=== PATIENT | female | born 1985 | race Caucasian/White ===

== ENCOUNTER 2021-07-25 23:10 | Inpatient (IN) | payer OTHER, SELFPAY ==
[2021-07-25] VITALS (29 sets, daily range): BP systolic 133–184; BP diastolic 88–111; PULSE 66–88; O2SAT 99
--- NOTE | ~2021-07-25 | US_ITS ---
EXAMINATION: US OB follow up w BPP DATE: 07/26/2021 08:59 INDICATION: Maternal gestational diabetes and induced hypertension. Assess growth and biophysical profile. TECHNIQUE: Real-time pelvic ultrasound was performed. The interpreting radiologist was not present fo r the study. COMPARISON: None. FINDINGS: There is a single living fetus in vertex presentation. The placenta is fundal. heart rate is 1 34 beats per minute (bpm). Normal amniotic fluid index of 18.4 cm (5th%-95%: 7.7-24.9 cm at 36 weeks estimated gestational age). The following biometric data were obtained: BPD: 8.9 cm -> 36 weeks 1 days Head circumference: 32.9 cm -> 37 weeks 3 days Abdominal circumference: 33.6 cm -> 37 weeks 3 days Femur length: 7.9 cm -> 40 weeks 1 days Both the femur length to biparietal diameter and length to head circumference diameter are grea ter than 2 standard deviations above the mean. Head circumference to abdominal circumference ratio: 0.98 (normal range 0.90-1.05). Estimated weight: 3351 g (+/-) 503 g, 7 lbs 6 oz (+/-) 1 lb 1 oz Biophysical profile performed by the technologist: breathing (30 sec sustained breathing in 30 minutes): 2 out of 2 movement (3 gross body movements in 30 minutes: 2 out of 2 tone (one episode of mbpxtyq-wrmfxhhzc-vhcqjcu limb movement): 2 out of 2 Amniotic fluid pocket (2 cm): 2 out of 2 Total score: 8 out of 8 IMPRESSION: 1. Single living fetus in vertex presentation. 2. Normal amniotic fluid index of 18.4 cm. 3. Biophysical profile 8 out of 8. 4. Gestational age by ultrasound of 37 weeks 6 day(s) +/-2 weeks and 5 days with ultrasound estimate d date of delivery (CHIKIS) of 08/10/2021. Estimated weight is 93rd percentile by Hadlock criteria w hen 08/23/2021 is used as the CHIKIS. Please correlate with clinical information or earlier ultrasounds f or most accurate CHIKIS. 5. Discordant biometric measurements with both femoral length to biparietal diameter ratio and femora l length to head circumference ratio greater than 2 standard deviations above the mean. Reviewed, dictated and finalized at location A. IMPRESSION: 1. Single living fetus in vertex presentation. 2. Normal amniotic fluid index of 18.4 cm. 3. Biophysical profile 8 out of 8. 4. Gestational age by ultrasound of 37 weeks 6 day(s) +/-2 weeks and 5 days wi th ultrasound estimated date of delivery (CHIKIS) of 08/10/2021. Estimated joyce ght is 93rd percentile by Hadlock criteria when 08/23/2021 is used as the CHIKIS. P lease correlate with clinical information or earlier ultrasounds for most accur ate CHIKIS. 5. Discordant biometric measurements with both femoral length to biparietal feliciano meter ratio and femoral length to head circumference ratio greater than 2 stand bhupendra deviations above the mean.
--- NOTE | ~2021-07-25 | US_ITS ---
US venous doppler [facility] DATE: 07/25/2021 18:42 INDICATION: Left leg pain and swelling TECHNIQUE: Real-time and color flow imaging and Doppler analysis of the veins of the left lower extre mity COMPARISON: None FINDINGS: The left greater saphenous vein is patent. There is spontaneous and phasic flow and normal augmentation and color flow signal and normal compression of the deep veins of the left leg. IMPRESSION: Normal examination; no evidence of deep venous thrombosis of left leg Reviewed, dictated and finalized at [facility]. Reviewed, dictated and finalized at location A. IMPRESSION: Normal examination; no evidence of deep venous thrombosis of left l eg
--- NOTE | 2021-07-25 18:00 | PC.NURSE ---
Dr. Johansen had called ahead of pt's arrival and gave orders.
--- NOTE | 2021-07-25 18:10 | PC.NURSE ---
Dr. Johansen returned page and informed of initial BP, headache, reflexes are brisk with sustained clonus, and left leg more swollen than right leg and she has had some pain intermittently in her left leg today. Additional orders received.
--- NOTE | 2021-07-25 18:23 | PC.NURSE ---
U/S her for bedside U/S.
[2021-07-25] MEDS: LABETALOL HCL INJ 100 MG/20 ML VIAL 20 MG IV PUSH (18:40)
[2021-07-25] MEDS: BETAMETHASONE SOD PHOS/ACETATE 30 MG/5 ML VIAL 12 MG IM (18:41)
[2021-07-25 18:44] LABS: Basophils Percent Auto 0.4 % (0.2-1.2); Eosinophils Absolute Auto 0.1 K/mm3 (0-0.3); Eosinophils Percent Auto 0.4 % (0-4.4); Hematocrit 39.4 % (37.0-47.0); Hemoglobin 12.9 g/dL (12.0-15.0); Immature Granulocyte Absolute 0.06 K/mm3 (0.00-0.031); Immature Granulocyte Percent A 0.5 % (0-0.5); Lymphocytes Absolute Auto 2.06 K/mm3 (0.9-3.2); Lymphocytes Percent Auto 18.4 % (18.3-44.2); Mean Corpuscular HGB Conc 32.7 g/dl (32-36); Mean Corpuscular Hemoglobin 28.7 pg (26-34); Mean Corpuscular Volume 87.8 fl (80-100); Mean Platelet Volume 10.3 fl (7.4-10.4); Monocytes Percent Auto 8.6 % (2.6-8.5); Neutrophils Percent Auto 71.7 % (45.5-73.1); Platelet Count Result 243 k/mm3 (150-375); Red Blood Count 4.49 M/mm3 (4.2-5.4); Red Cell Distribution Width 13.7 % (11.5-14.5); White Blood Count 11.2 K/mm3 (4.5-10.0)
[2021-07-25 18:48] LABS: Add Urine Microscopic? YES; Appearance Urine Clear (Clear); Bacteria Urine Trace /hpf; Bilirubin Urine Negative (Negative); Blood Urine Negative (Negative); Color Urine Straw (Yellow); Glucose Urine UA Negative (Negative); Ketones Urine Negative (Negative); Leukocyte Esterase Ur Trace LEU/UL (Negative); Mucus Urine Rare /lpf; Nitrate Urine Negative (Negative); Protein Urine Negative (Negative); Specific Grav Ur 1.008 (1.001-1.035); Squamous Epithelial Cell Urine Moderate /hpf (Few); Urobilinogen Urine Negative mg/dL (<2.0); WBC Urine 0-3 /hpf
[2021-07-25 18:51] LABS: Creatinine Urine 34.5 mg/dL; Total Protein Urine Random 23 mg/dL; Ur Ttl Prot Creatinine Ratio 0.67 mg/mg (0-0.20)
[2021-07-25 19:04] LABS: Alanine Aminotransferase 16 U/L (4-35); Albumin Level 3.9 g/dL (3.5-5.1); Alkaline Phosphatase 99 U/L (38-126); Anion Gap 8 mmol/L (8-16); Aspartate Amino Transferase 22 U/L (14-36); Bilirubin,Total 0.7 mg/dL (0.2-1.3); Blood Urea Nitrogen 11 mg/dL (7-17); Calcium 9.1 mg/dL (8.4-10.2); Carbon Dioxide 21 mmol/L (22-30); Chloride 106 mmol/L (98-107); Estimated Glomerular Filt Rate > 60; Glucose 85 mg/dL (65-110); Potassium 3.9 mmol/L (3.4-5.0); Sodium 135 mmol/L (137-145)
--- NOTE | 2021-07-25 19:04 | OBADM ---
This patient, Svitlana Alaniz, admitted to the OB room 118 for observation for hypertension in . Patient/family oriented to hospital policies and general routines including ID bracelet, bed and alarms, visiting hours, pain management, procedures, bathroom and other care routines, personal items, smoking policy, room service/diet, and visiting hours. Patient/Family are encouraged to report perceived risks to care and to ask questions if they do not understand what they are told or what they should do.
--- NOTE | 2021-07-25 19:45 | PC.NURSE ---
Dr. Johansen called in for pt update. Informed of BPs. Orders received.
--- NOTE | 2021-07-25 20:00 | PC.NURSE ---
Discussed plan of care with pt. Informed of order to keep overnight to observe. Pt states that she does not want to stay and wants to go home. Informed of risks to her health and baby's health if she leaves, including seizure, stroke and . Pt deciding if she will stay.
[2021-07-25] MEDS: LABETALOL HCL INJ 100 MG/20 ML VIAL 40 MG IV PUSH (20:04)
[2021-07-25] MEDS: LABETALOL HCL INJ 100 MG/20 ML VIAL 80 MG IV PUSH (20:35)
--- NOTE | 2021-07-25 21:46 | PC.NURSE ---
Dr. Johansen called in for pt update. Informed of BPs. No new orders received.
[2021-07-25] MEDS: ZOLPIDEM TARTRATE (*CRX) 5 MG TABLET 10 MG PO (23:44)
[2021-07-26] VITALS (36 sets, daily range): BP systolic 129–181; BP diastolic 64–106; PULSE 76–99; RESP 20; TEMP 36.5–37.1; BMI 35.2
--- NOTE | 2021-07-26 | PC.NURSE ---
Dr. Isabella Malcolm on unit. Update given on pt. No new orders received.
--- NOTE | 2021-07-26 07:08 | PM.IMHP ---
H&P: HPI History of Present Illness Date/Time: 07/26/21 07:08 35-year-old 3 para 1011 last menstrual period was 11/09/2020, EDC is 08/23/2021, presents at 36 weeks gestation with headache. She had blood pressures at work that remover 180/100 she has had some elevated pressures as times when on here. Blood pressures were super high here she went through the protocol and blood pressures are little better at this point PIH labs are relatively normal. She is being observed for the possibility of induction of labor secondary to these elevated pressures Chief Complaint: is hypertension at 36 weeks Review of Systems Review of Systems: All systems reviewed & are unremarkable except as noted in HPI and below PMFSH Past Medical History Medical History Morbid obesity Family History Family History Other Patient denies significant medical history Social History Social History Smoking status: Never smoker Second hand tobacco smoke exposure: No Gender identity (if verbalized by the patient): Female Spiritual care concerns: No ([employer]) Meds Home Medications and Allergies Home Medications Medication Instructions Recorded Confirmed Type ascorbic acid (vitamin C) 1 g PO DAILY 07/25/21 07/25/21 History cholecalciferol (vitamin D3) 125 mcg PO DAILY 07/25/21 07/25/21 History [Vitamin D3] metformin 500 mg PO BID 07/25/21 07/25/21 History [id number] fum-folic ac-om3 1 pkg PO DAILY 07/25/21 07/25/21 History [One A Day Women's DHA] Allergies Allergy/AdvReac Type Severity Reaction Status Date / Time No Known Allergies Allergy Verified 07/25/21 18:54 Vital Signs Vital Signs - 24 hr 07/25/21 18:00 07/25/21 18:04 07/25/21 18:05 Temperature Pulse Rate 81 Blood Pressure 184/105 H Blood Pressure [Right Arm] Pulse Oximetry 99 99 07/25/21 18:10 07/25/21 18:15 07/25/21 18:30 Temperature Pulse Rate 81 80 75 Blood Pressure 182/107 H 178/110 H Blood Pressure [Right Arm] 184/105 H Pulse Oximetry 99 99 07/25/21 18:38 07/25/21 18:40 07/25/21 18:45 Temperature Pulse Rate 79 72 75 Blood Pressure 184/111 H 171/107 H Blood Pressure [Right Arm] Pulse Oximetry 07/25/21 19:00 07/25/21 19:02 07/25/21 19:15 Temperature Pulse Rate 71 71 66 Blood Pressure 158/100 H 158/100 H 154/94 H Blood Pressure [Right Arm] Pulse Oximetry 07/25/21 19:30 07/25/21 19:45 07/25/21 20:00 Temperature Pulse Rate 70 66 78 Blood Pressure 164/91 H 162/91 H 178/110 H Blood Pressure [Right Arm] Pulse Oximetry 07/25/21 20:04 07/25/21 20:30 07/25/21 20:35 Temperature Pulse Rate 76 73 85 Blood Pressure 163/99 H Blood Pressure [Right Arm] Pulse Oximetry 07/25/21 20:45 07/25/21 21:00 07/25/21 21:15 Temperature Pulse Rate 79 88 85 Blood Pressure 147/93 H 159/99 H 148/88 H Blood Pressure [Right Arm] Pulse Oximetry 07/25/21 21:30 07/25/21 21:45 07/25/21 22:00 Temperature Pulse Rate 86 84 88 Blood Pressure 147/89 H 144/91 H 133/92 H Blood Pressure [Right Arm] Pulse Oximetry 07/25/21 22:15 07/25/21 22:30 07/25/21 22:45 Temperature Pulse Rate 84 86 84 Blood Pressure 153/100 H 145/97 H 150/92 H Blood Pressure [Right Arm] Pulse Oximetry 07/25/21 23:00 07/25/21 23:13 07/26/21 00:00 Temperature 98.1 F Pulse Rate 88 81 Blood Pressure 153/93 H 158/98 H Blood Pressure [Right Arm] Pulse Oximetry 07/26/21 00:01 07/26/21 00:18 07/26/21 01:01 Temperature Pulse Rate 86 90 78 Blood Pressure 167/89 H 139/70 129/64 Blood Pressure [Right Arm] Pulse Oximetry 07/26/21 02:01 07/26/21 03:07/26/21 04:01 Temperature Pulse Rate 82 97 92 Blood Pressure 135/83 147/91 H 156/88 H Blood Pressure [Right Arm]
[2021-07-26 07:40] LABS: Hemoglobin 12.5 g/dL (12.0-15.0); Mean Corpuscular HGB Conc 32.9 g/dl (32-36); Mean Corpuscular Hemoglobin 29.1 pg (26-34); Mean Corpuscular Volume 88.6 fl (80-100); Mean Platelet Volume 10.5 fl (7.4-10.4); Platelet Count Result 250 k/mm3 (150-375); Red Blood Count 4.29 M/mm3 (4.2-5.4); Red Cell Distribution Width 13.8 % (11.5-14.5); White Blood Count 12.8 K/mm3 (4.5-10.0)
--- NOTE | 2021-07-26 07:44 | PC.NURSE ---
Dr. Mac in to see pt. SVE 1cm. Discussed plan of care. Will repeat labs, BPP, growth US and CHANTAL. Possible induction of labor today.
[2021-07-26 07:49] LABS: Alanine Aminotransferase 15 U/L (4-35); Albumin Level 3.9 g/dL (3.5-5.1); Alkaline Phosphatase 95 U/L (38-126); Anion Gap 9 mmol/L (8-16); Aspartate Amino Transferase 19 U/L (14-36); Bilirubin,Total 0.9 mg/dL (0.2-1.3); Blood Urea Nitrogen 11 mg/dL (7-17); Calcium 8.9 mg/dL (8.4-10.2); Carbon Dioxide 19 mmol/L (22-30); Chloride 107 mmol/L (98-107); Estimated Glomerular Filt Rate > 60; Glucose 111 mg/dL (65-110); Potassium 4.1 mmol/L (3.4-5.0); Sodium 135 mmol/L (137-145)
[2021-07-26] MEDS: LABETALOL HCL 100 MG TABLET 200 MG PO ×2 (09:57→17:51)
[2021-07-26] MEDS: metFORMIN HCL 500 MG TABLET PO ×2 (10:52→18:58)
[2021-07-26] MEDS: DINOPROSTONE 10 MG VAG INSERT VAGINAL (10:52)
--- NOTE | 2021-07-26 11:22 | LDADM ---
This patient, Svitlana Alaniz, was admitted to Labor/Delivery/Recovery 108 on 07/26/21 at 09:34. Plans for labor, pain management and were discussed with patient. Patient/family oriented to hospital policies and general routines including ID bracelet, bed and alarms, visiting hours, pain management, procedures, bathroom and other care routines, personal items, smoking policy, room service/diet and guest tray routines, security routines, and visiting hours. Patient/Family are encouraged to report perceived risks to care and to ask questions if they do not understand what they are told or what they should do. See OBIX for further documentation.
[2021-07-26 11:43] LABS: Glucose Point of Care 142 mg/dl (65-105)
[2021-07-26] MEDS: AMPICILLIN 2 GM/NS 100 ML 2 GM/100 ML BAG IVPB (11:49)
[2021-07-26] MEDS: LACTATED RINGERS 1,000 ML 125 ML IV CONT (11:50)
[2021-07-26] MEDS: NIFEdipine 30 MG TAB.ER.24 PO (11:50)
[2021-07-26] MEDS: ACETAMINOPHEN 325 MG TABLET 650 MG PO (12:28)
[2021-07-26] MEDS: CALCIUM CARBONATE (TUMS) 500 MG (200 MG ELEMENTAL) PO (12:28)
[2021-07-26] MEDS: FAMOTIDINE 20 MG TABLET PO (12:28)
[2021-07-26] MEDS: AMPICILLIN 1 GM/NS 50 ML 1 GM/50 ML BAG IVPB ×3 (15:29→23:17)
[2021-07-26 15:37] LABS: Glucose Point of Care 109 mg/dl (65-105)
[2021-07-26] MEDS: fentaNYL CITRATE INJ (*CRX) 100 MCG/2 ML VIAL 50 MCG IV PUSH (16:02)
--- NOTE | 2021-07-26 16:21 | PM.OBPNLAB ---
Pain Control Date/time seen: 07/26/21 16:21 Pain control: tolerating well Contractions Monitor mode: External Contraction pattern: Regular
[2021-07-26] MEDS: BETAMETHASONE SOD PHOS/ACETATE 30 MG/5 ML VIAL 12 MG IM (18:36)
[2021-07-26] MEDS: LABETALOL HCL 100 MG TABLET (19:29)
[2021-07-26 20:40] LABS: Glucose Point of Care 120 mg/dl (65-105)
[2021-07-26] MEDS: OXYTOCIN 30 UNITS/NS 500 ML 30 UNITS/500 ML BAG IV CONT (23:17)
[2021-07-26] MEDS: fentaNYL CITRATE INJ (*CRX) 100 MCG/2 ML VIAL IV PUSH (23:23)
[2021-07-26] MEDS: LACTATED RINGERS 1,000 ML 999 ML IV CONT (23:47)
[2021-07-27] VITALS (146 sets, daily range): BP systolic 123–177; BP diastolic 77–117; PULSE 73–153; RESP 16–18; TEMP 36.7–37.4; O2SAT 89–100
[2021-07-27] MEDS: LACTATED RINGERS 1,000 ML 125 ML IV CONT (01:00)
[2021-07-27] MEDS: LABETALOL HCL 100 MG TABLET 200 MG PO ×3 (02:30→18:04)
[2021-07-27] MEDS: AMPICILLIN 1 GM/NS 50 ML 1 GM/50 ML BAG IVPB ×2 (03:00→07:08)
[2021-07-27 05:18] LABS: Glucose Point of Care 128 mg/dl (65-105)
--- NOTE | 2021-07-27 06:31 | PM.OBPNLAB ---
Pain Control Date/time seen: 07/27/21 06:31 Pain control: tolerating well and epidural Comments: The blood pressures are relatively stable labetalol. AROM with bloody fluid. FHTs reassuring. Epidural is in working Pelvic Exam Dilation (cm): 3 Effacement (%): 80 station: -2 Amniotic membrane status: Ruptured Contractions Monitor mode: External Contraction pattern: Regular
[2021-07-27 07:21] LABS: Glucose Point of Care 115 mg/dl (65-105)
[2021-07-27] MEDS: metFORMIN HCL 500 MG TABLET PO (07:46)
--- NOTE | 2021-07-27 09:30 | PM.OBPRVD ---
OB - Delivery Note Procedure Delivery date: 07/27/21 Procedure: mil Events: Gestational Hypertension Induction method: Per Cervidil Protocol Delivery augmentation: Rupture of Membranes and Pitocin Delivery monitor: External FHT Route of delivery: Episiotomy description: None Laceration Description: None Quantitative Blood Loss (ml): 59 Anesthesia type: Epidural Disposition: Floor D [facility] Baby Date of : 07/27/21 Time of : 09:17 Weeks of gestation at delivery: 36 Infant gender: Female presentation: vertex position: Right Occiput Anterior Placenta delivery description: Spontaneous Cord Vessel Description: 3 Vessels
[2021-07-27] MEDS: OXYTOCIN 30 UNITS/NS 500 ML 30 UNITS/500 ML BAG 125 UNITS IV CONT (09:44)
[2021-07-27 11:28] LABS: Rapid Plasma Reagin Non-Reactive (NonReactive)
[2021-07-27] MEDS: WITCH HAZEL 40 PADS 1 PAD TOPICAL (11:39)
[2021-07-27] MEDS: IBUPROFEN 600 MG TABLET PO ×2 (11:39→19:21)
[2021-07-27] MEDS: BENZOCAINE 20% AER SPR (*SP) 56 GM CAN 1 SPRAY TOPICAL (11:39)
--- NOTE | 2021-07-27 14:29 | PC.NURSE ---
Consulted with patient, reviewed feeding cues, frequencies, duration of feedings & demonstrated stimulation techniques to wake for feeding. Assisted with to breast. Reviewed positioning/alignment, holding breast and asymmetrical latch on. Infant was unable to latch & feed. was sleepy at the breast despite trying to wake . Reviewed signs of a correct latch & effective nursing. Instructed mother to call out for RN assistance if she is unable to latch infant for feeding or she has discomfort with nursing. Instructed to continue skin to skin until 1500 unless feeding cues noted before. Pump after feeding attempt if unable to get infant to feed. Instructed feeding should be initiated three hours from start of last feeding or if feeding cues are noted before. Mother voiced understanding of information shared.
--- NOTE | 2021-07-27 14:35 | PC.NURSE ---
Plan reported to primary RN.
[2021-07-27] MEDS: ACETAMINOPHEN 325 MG TABLET 650 MG PO (14:38)
[2021-07-28] VITALS (9 sets, daily range): BP systolic 139–165; BP diastolic 86–101; PULSE 72–98; RESP 14–16; TEMP 36.2–36.8; O2SAT 93–100
[2021-07-28] MEDS: LABETALOL HCL 100 MG TABLET 200 MG PO ×3 (02:11→18:01)
[2021-07-28 05:04] LABS: Hematocrit 35.2 % (37.0-47.0); Hemoglobin 11.4 g/dL (12.0-15.0)
[2021-07-28] MEDS: POLYSACCHARIDE IRON COMPLEX 150 MG CAPSULE PO (07:55)
[2021-07-28] MEDS: IBUPROFEN 600 MG TABLET PO ×2 (07:55→16:01)
[2021-07-28] MEDS: DOCUSATE SODIUM 100 MG CAPSULE PO ×2 (07:55→16:01)
[2021-07-28] MEDS: MULTIVIT/MIN/PREN/FOL AC/IRON TABLET 1 TAB PO (07:55)
--- NOTE | 2021-07-28 08:13 | P.PNOB_ITS ---
OB - PN: Subj Subjective Date/time seen: 07/28/21 08:13 Patient comments: no complaints and pain well controlled baby status: doing well OB - PN: Obj Data Labs CBC & Chem 7: 07/28/21 04:48 07/26/21 07:27 Labs: Laboratory Results - last 24 hr 07/25/21 07/28/21 18:27 04:48 Hgb 11.4 L Hct 35.2 L RPR Non-reactive OB - PN A/P Plan day: 1 Plan: routine care Time Spent With Patient Time: Total time spent is greater than 50% in coordination of care (as documented) at patient's floor/unit and/or counseling patient: Time with patient: less than 15 minutes Review of Systems Review of Systems: All systems reviewed & are unremarkable except as noted in HPI and below Exam Const: General: no acute distress Eyes: General: appearance normal, both eyes and all related structures Neck: Neck: supple and no JVD Thyroid: thyroid normal Resp: Effort & Inspection: normal respiratory effort Auscultation: clear to auscultation bilaterally Cardio: Rate: regular rate Rhythm: regular rhythm GI: Inspection: non-distended GI Palp: Yes Soft to palpation, No Tenderness to palpation present (GI) and No Guarding due to palpation present (GI) Auscultation: normal bowel sounds : General: Yes bladder normal to palpation External Female Exam: normal external appearance Speculum Exam - Vagina: normal vaginal discharge and No v aginal bleeding Speculum Exam - Cervix: nontender Bimanual exam- vagina & uterus: bladder normal to palpation and No Cervical tenderness present OB/external & speculum: No vaginal bleeding Skin: General skin exam: no rashes or lesions noted Extrem: General: normal to inspection and no edema Psych: Mental Status: mental status grossly normal Affect: normal affect
[2021-07-28] MEDS: NIFEdipine 30 MG TAB.ER.24 PO (11:57)
--- NOTE | 2021-07-28 12:35 | WPDANLDPN2 ---
Anes-Prog Note L&D Date/Time: 07/28/21 12:35 Comfortable throughout: labor and delivery Neuraxial method: epidural Epidural/Spinal procedure site: clean & non-tender Neuro status: Neuro function grossly intact. Cardiovascular status: normal Respiratory status: normal Airway patency: baseline Mental status: baseline Post-Op hydration status: normal Vital Signs: Last Vital Signs Temp 36.7 C 07/28/21 04:00 Pulse 77 07/28/21 04:00 Resp 16 07/28/21 04:00 BP 165/101 H 07/28/21 04:00 Pulse Ox 95 07/28/21 04:00 Pain score (VAS): 05/21 I/O: Intake & Output 07/27/21 07/28/21 07/28/21 23:59 07:59 15:59 Intake Total 800 Output Total 1850 Balance -1050 Post-procedural complaints: none Patient feedback: Patient satisfied with anesthetic care.
[2021-07-29] VITALS: BP 153/96; PULSE 80
[2021-07-29] MEDS: IBUPROFEN 600 MG TABLET PO ×2 (00:06→08:31)
[2021-07-29 03:00] VITALS: BP 148/85; PULSE 70
[2021-07-29 05:54] VITALS: PULSE 82
[2021-07-29] MEDS: LABETALOL HCL 100 MG TABLET 200 MG PO (05:54)
--- NOTE | 2021-07-29 07:09 | PM.DS ---
DS: Admitting Diagnosis Discharge Date Admitting Diagnosis 36 week with elevated blood pressures DS: Summary Hospital Course Hospital Course: the patient was admitted at 36 weeks with severe headache and elevated blood pressures. She would undergo Metadate Koul induction of labor with successful delivery. Her hospital course was relatively unremarkable. She was placed on Procardia XL 30 daily and 200mg of labetalol t.i.d. with good control of her blood pressure. She remained afebrile. She was up, ambulating without difficulty, and generally without complaints Time Spent with Patient Time attestation: Total time spent providing and/or coordinating discharge services: Exam Const: General: no acute distress Eyes: General: appearance normal, both eyes and all related structures Neck: Neck: supple and no JVD Thyroid: thyroid normal Resp: Effort & Inspection: normal respiratory effort Auscultation: clear to auscultation bilaterally Cardio: Rate: regular rate Rhythm: regular rhythm GI: Inspection: non-distended GI Palp: Yes Soft to palpation, No Tenderness to palpation present (GI) and No Guarding due to palpation present (GI) Auscultation: normal bowel sounds : General: Yes bladder normal to palpation External Female Exam: normal external appearance Speculum Exam - Vagina: normal vaginal discharge and No vaginal bleeding Speculum Exam - Cervix: nontender Bimanual exam- vagina & uterus: bladder normal to palpation and No Cervical tenderness present OB/external & speculum: No vaginal bleeding Skin: General skin exam: no rashes or lesions noted Extrem: General: normal to inspection and no edema Psych: Mental Status: mental status grossly normal Affect: normal affect Discharge Plan Discharge Attending physician on discharge: Gómez Velázquez Discharging Clinician: Gómez Velázquez Patient Disposition: Home, Self-Care Activity: may shower and pelvic rest Diet: heart healthy Wound Care Instructions: follow printed instructions Patient Instructions: Antibiotic Form Stand Alone Forms: General Discharge Information Follow-up/Referrals: Gómez Velázquez MD [Physician] - Discharge Medications: New labetalol 200 mg tablet 200 mg PO TID Qty: 90 RF: 0 nifedipine 30 mg tablet extended release 30 mg PO DAILY Qty: 30 RF: 0 Continued metformin 500 mg tablet 500 mg PO BID RF: 0 ascorbic acid (vitamin C) 1,000 mg Tablet 1 g PO DAILY RF: 0 cholecalciferol (vitamin D3) [Vitamin D3] 125 mcg (5,000 unit) Tablet 125 mcg PO DAILY RF: 0 One A Day Women's DHA 28 mg iron- 800 mcg Combo Pack 1 pkg PO DAILY RF: 0 Date of admission: 07/26/21 09:34 Primary Care Provider: Angie,Yoana Delarosa Admitting Provider: Gómez Velázquez Attending physician on admission: Gómez Velázquez Condition: Stable
[2021-07-29] MEDS: DOCUSATE SODIUM 100 MG CAPSULE PO (08:31)
[2021-07-29] MEDS: MULTIVIT/MIN/PREN/FOL AC/IRON TABLET 1 TAB PO (08:31)
[2021-07-29 08:45] VITALS: BP 130/79; PULSE 67; RESP 16; TEMP 36.3; O2SAT 100
[2021-07-29] MEDS: ACETAMINOPHEN 325 MG TABLET 650 MG PO (11:08)
[2021-07-29] MEDS: NIFEdipine 30 MG TAB.ER.24 PO (11:08)
--- NOTE | 2021-07-29 13:46 | PC.NURSE ---
0831 Patient was given the opportunity to view the discharge video Mother & Baby Care, The First Two Weeks and to ask questions. Patient declined viewing the video and has been given the mother/baby guide for home reference.
== END 2021-07-29 11:43 | disposition home or self-care (01) | DRG 807 ==
LOC: ANHOBOP 23:10 → ANHOBPP 23:10 → ANHLDR 07-26 10:15 → ANHOB2 07-27 13:20
PROVIDERS: Admitting Provider Student in an Organized Health Care Education/Training Program; PCP Family Medicine; Visit Provider Obstetrics & Gynecology
DX: O13.4 Gestational [pregnancy-induced] hypertension without significant proteinuria, complicating childbirth (principal); Z37.0 Single live birth; Z3A.36 36 weeks gestation of pregnancy; O24.429 Gestational diabetes mellitus in childbirth, unspecified control; O14.94 Unspecified pre-eclampsia, complicating childbirth
CPT/HCPCS: 36415; 76816; 76819; 80053; 81001; 82570; 82948; 84156; 84550; 85014; 85018; 85025; 85027; 86592; 86850; 86900; 86901; 93971; 96372; 99199; A9270; J0290; J0702; J2590; J2795; J3010; J7120

== ENCOUNTER 2023-01-10 03:52 | Day surgery (SDC) | payer OTHER, SELFPAY ==
[2023-01-06 12:57] VITALS: BMI 29.0
--- NOTE | 2023-01-06 13:02 | PC.NURSE ---
Report to the Outpatient Waiting Room, entrance under the green pavilion located off [facility], at time 1315 on date 01/10/23. Planned Procedure Time: 1515. Time changes happen often and if your time is changed the preop area will call you the afternoon before. - You and your visitor will be asked to self-screen and do not enter if you have any COVID symptoms. - A mask is optional within the hospital at this time. Patients may have clear liquids (water, carbonated beverages, clear teas, apple juice) until 3 hours prior to surgery with a maximum of 20 ounces. - No food from midnight until time of surgery Take the following medications with a SIP of water the morning of surgery: NONE DO NOT STOP ANY OF YOUR OTHER PRESCRIPTION MEDICATIONS PRIOR TO SURGERY ?EXCEPT THE FOLLOWING Medications to discontinue per physician: VITAMINS/SUPPLEMENTS Date to take last dose: 01/06/23 Please no make-up, nail rwandan, hairspray, perfume, deodorant, or body powder the day of surgery. No jewelry (including any body piercings) or valuables the day of surgery, leave them at home. Please take a shower or bath the night before, or the morning of, surgery with an antibacterial soap. Wear comfortable, loose fitting clothing. - Jewelry must be removed prior to entering the operating room. Rings and piercings that are not removed may be cut off. - The hospital will not accept responsibility for valuables. - Please leave all valuables, including medications, at home the day of surgery. If you are going home after surgery, a licensed rental car ferry driver must drive you home. - NO public transportation without another adult if you receive anesthesia. - We recommend that an adult stay with you for 24 hours following discharge. - We also recommend that you do not drive, make important decision, drink alcoholic beverages, or take any drugs that were not prescribed by your health care provider for at least 24 hours after your discharge time. Follow any additional instructions given to you from your surgeon. If you or anyone in your household have experienced Covid symptoms in the past week, please notify your surgeon or the nurse liaison at the phone number below for possible testing. Telephone instructions given to PT - IVÁN GARCÍA and asked if any additional questions and then verbalized understanding. Patient advised to call surgeon office or pre surgery nurse liaison [phone] if any additional questions.
--- NOTE | 2023-01-07 13:09 | PM.IMHP ---
H&P: HPI History of Present Illness Date/Time: 01/07/23 13:09 Chief Complaint: ?Lump in vagina ? 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 It is present on the right and is causing her pain and discomfort. She will undergo resection this cyst. Risks and benefits reviewed in full. She agreed to proceed PMFSH Past Medical History Medical History (Updated 01/07/23 @ 13:12 by Gómez Malcolm MD) Morbid obesity Family History Family History Other Patient denies significant medical history Social History Social History Smoking status: Never smoker Second hand tobacco smoke exposure: No Alcohol intake: current Drinks per week: 2 Substance use: never Substance use type: does not use Living arrangements: with family Gender identity (if verbalized by the patient): Female Spiritual care concerns: No Meds Home Medications and Allergies Home Medications Medication Instructions Recorded Confirmed Type ascorbic acid (vitamin C) 1,000 mg 1 g PO DAILY 07/25/21 01/06/23 History tablet cholecalciferol (vitamin D3) 125 125 mcg PO DAILY 07/25/21 01/06/23 History mcg (5,000 unit) tablet (Vitamin D3) vits 75-iron 28 mg-folic 1 pkg PO DAILY 07/25/21 01/06/23 History acid 800 mcg-omega-3 oral combo pack (One A Day Women's DHA) letrozole 2.5 mg tablet 7.5 mg PO DAILY 01/06/23 01/06/23 History Allergies Allergy/AdvReac Type Severity Reaction Status Date / Time No Known Allergies Allergy Verified 01/06/23 12:55 Exam Const: General: cooperative, healthy appearing, comfortable and overweight Orientation/consciousness: oriented to person, oriented to place and oriented to time Resp: Effort & Inspection: normal respiratory effort Cardio: Rate: regular rate Rhythm: regular rhythm Heart sounds: S1 normal heart sound present and S2 normal heart sound present GI: Inspection: normal to inspection : External Female Exam: normal external appearance Speculum Exam - Vagina: normal appearance of the vagina (Right-sided moderate Harmony duct cyst noted.) Speculum Exam - Cervix: normal appearance of the cervix Bimanual exam- vagina & uterus: non-tender Bimanual Exam- Adnexa, other: normal adnexae Assessment and Plan Assessment and plan (1) Harmony duct, 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
--- NOTE | 2023-01-09 15:04 | WPDANESEPPF ---
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 Patient Data Age: 37 Gender: F Height: 1.68 m Weight: 81.65 kg Allergies Allergy/AdvReac Type Severity Reaction Status Date / Time No Known Allergies Allergy Verified 01/10/23 13:29 Home Medications Medication Instructions Recorded Confirmed Type ascorbic acid (vitamin C) 1,000 mg 1 g PO DAILY 07/25/21 01/06/23 History tablet cholecalciferol (vitamin D3) 125 125 mcg PO DAILY 07/25/21 01/06/23 History mcg (5,000 unit) tablet (Vitamin D3) vits 75-iron 28 mg-folic 1 pkg PO DAILY 07/25/21 01/06/23 History acid 800 mcg-omega-3 oral combo pack (One A Day Women's DHA) letrozole 2.5 mg tablet 7.5 mg PO DAILY 01/06/23 01/06/23 History hydrocodone 5 mg-acetaminophen 325 1 tablet PO Q4H PRN pain #10 tabs 01/10/23 Rx mg tablet Patient hx anesthesia problems: post op nausea/vomiting Family hx anesthesia problems: none Results Review: All pre-operative results and documents have been reviewed as part of the pre-operative evaluation. [facility] Past Medical History Medical History (Updated 01/09/23 @ 15:05 by Odin Aviles DO) PONV (postoperative nausea and vomiting) Family History Family History Other Patient denies significant medical history Social History Social History Smoking status: Never smoker Second hand tobacco smoke exposure: No Alcohol intake: current Drinks per week: 2 Substance use: never Substance use type: does not use Living arrangements: with family Gender identity (if verbalized by the patient): Female Spiritual care concerns: No Anes - Eval Final PreProcedure Day of Procedure 01/09/23 15:04 Patient weight: overweight Heart: regular rate and rhythm Lungs: clear to auscultation Airway: Mallampati scale class II Neurological: alert and oriented Last oral intake: >/= 8 hours ASA classification: I Emergent: no Anesthetic plan: proceed Anesthesia type and monitoring: general GIVS and standard monitoring Results Review: All pre-operative results and documents have been reviewed as part of the pre-operative evaluation. Informed Consent: The patient's anesthetic plan and its attendant risks and benefits were discussed with the patient/family/POA. Questions were solicited and answers provided to the satisfaction of the patient/family/POA.
--- NOTE | 2023-01-10 07:00 | WPDHPUPDATE1 ---
History and Physical Update Update Date/Time: 01/10/23 07:00 History and Physical has been reviewed, including an updated exam of the patient. There are NO changes in the patient's condition. Risks, benefits, and alternatives have been discussed and questions answered. Patient agrees to proceed with procedure.
[2023-01-10 13:03] VITALS: BMI 29.3
[2023-01-10 13:05] VITALS: BP 133/91; PULSE 78; RESP 16; TEMP 36.8; O2SAT 100
[2023-01-10] MEDS: LACTATED RINGERS 1,000 ML 30 ML IV CONT (13:39)
[2023-01-10] MEDS: ceFAZolin 2 GM/D5W 50 ML 2 GM/50 ML BAG IVPB (14:18)
[2023-01-10] MEDS: LIDOCAINE HCL 1% LOCAL INJ 20 ML VIAL 10 ML INFILTRATE (14:30)
--- NOTE | 2023-01-10 14:44 | W.PM.PROC2 ---
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 Under excellent IV anesthetic the Dany is a 6 was noted knows about the size of a golf ball. It was instilled locally with 1% xylocaine anesthesia and a linear incision made. The cyst wall was then excised. The excess vaginal mucosa then was removed and using continuous running 0 Vicryl was closed from top to bottom. Blood loss was estimated at5cc. All sponge, needle, instrument counts were correct. There were no immediate complications Estimated Blood Loss 5 Pathology Yes Complications No immediate complications Condition Stable Disposition PACU
[2023-01-10 14:46] VITALS: BP 112/69; PULSE 62; RESP 14; O2SAT 100
[2023-01-10 15:15] VITALS: BP 121/86; PULSE 74; RESP 14; O2SAT 99
[2023-01-10 15:43] VITALS: BP 136/91; PULSE 61; RESP 14
== END 2023-01-10 15:51 | disposition home or self-care (01) ==
PROVIDERS: PCP Family Medicine; Visit Provider Obstetrics & Gynecology
PROC: (CPT 57135; principal; 2023-01-10 15:15)
DX: Q52.4 Other congenital malformations of vagina (principal)
CPT/HCPCS: 57135; 88305; J0690; J2250; J2405; J2704; J3010; J7120

== ENCOUNTER 2023-09-26 08:56 | Outpatient (CLI) | payer OTHER, SELFPAY ==
[2023-09-26] VITALS (39 sets, daily range): BP systolic 140–180; BP diastolic 87–103; PULSE 67–96; BMI 35.2
--- NOTE | ~2023-09-26 | US_ITS ---
EXAMINATION: US OB follow up w BPP DATE: 09/26/2023 14:36 INDICATION: Maternal gestational diabetes and hypertension during third trimester . Assess f or growth and position. TECHNIQUE: Real-time pelvic ultrasound was performed. The interpreting radiologist was not present fo r the study. COMPARISON: None. FINDINGS: There is a single living fetus in breech presentation. The placenta is posterior and not low-lying. The cervix is poorly visualized due to shadowing from the lower limb but appears to measure maida roximately 2.8 cm with suggestion of V shaped funneling at the internal cervical os. heart rate is 130 beats per minute (bpm). Normal amniotic fluid index of 10.4 cm (5th%-95%: 8.1-24.8 cm at 34 w eeks estimated gestational age) Biophysical profile performed by the technologist: breathing (30 sec sustained breathing in 30 minutes): 0 out of 2 movement (3 gross body movements in 30 minutes): 2 out of 2 tone (one episode of hnitapw-weguwfmsy-goqqgcb limb movement): 2 out of 2 Amniotic fluid pocket (2 cm): 2 out of 2 Total score: 6 out of 8 IMPRESSION: 1. Single living fetus in breech presentation with heart rate of 130 bpm. 2. Biophysical profile 6 out of 8 with no points given for 30 contiguous seconds of breathing over the course of 30 minutes of observation. 3. Normal amniotic fluid volume of 10.4 cm. 4. Suboptimal visualization of the cervix on transabdominal imaging but which appears shortened to ap proximately 2.8 cm length with suggestion of V shaped funneling at the internal os. Reviewed, dictated and finalized at location A. IMPRESSION: 1. Single living fetus in breech presentation with heart rate of 130 bpm. 2. Biophysical profile 6 out of 8 with no points given for 30 contiguous secon ds of breathing over the course of 30 minutes of observation. 3. Normal amniotic fluid volume of 10.4 cm. 4. Suboptimal visualization of the cervix on transabdominal imaging but which a ppears shortened to approximately 2.8 cm length with suggestion of V shaped fun neling at the internal os.
--- NOTE | 2023-09-26 08:56 | OBADM ---
This patient, Svitlana Alaniz, admitted to the OB room OB Post 116 for observation. Patient/family oriented to hospital policies and general routines including ID bracelet, bed and alarms, visiting hours, pain management, procedures, bathroom and other care routines, personal items, smoking policy, room service/diet, and visiting hours. Patient/Family are encouraged to report perceived risks to care and to ask questions if they do not understand what they are told or what they should do.
[2023-09-26 09:42] LABS: Basophils Percent Auto 0.2 % (0.2-1.2); Eosinophils Percent Auto 0.4 % (0-4.4); Hematocrit 38.1 % (37.0-47.0); Hemoglobin 12.6 g/dL (12.0-15.0); Immature Granulocyte Absolute 0.08 K/mm3 (0.00-0.031); Immature Granulocyte Percent A 0.7 % (0-0.5); Lymphocytes Absolute Auto 1.35 K/mm3 (0.9-3.2); Lymphocytes Percent Auto 12.1 % (18.3-44.2); Mean Corpuscular HGB Conc 33.1 g/dl (32-36); Mean Corpuscular Volume 87.6 fl (80-100); Mean Platelet Volume 9.9 fl (7.4-10.4); Monocytes Absolute Auto 0.8 K/mm3 (0.1-0.6); Monocytes Percent Auto 7.4 % (2.6-8.5); Neutrophils Absolute Auto 8.9 K/mm3 (1.3-6.7); Neutrophils Percent Auto 79.2 % (45.5-73.1); Platelet Count Result 253 k/mm3 (150-375); Red Blood Count 4.35 M/mm3 (4.2-5.4); Red Cell Distribution Width 13.8 % (11.5-14.5); White Blood Count 11.2 K/mm3 (4.5-10.0)
[2023-09-26 09:59] LABS: Appearance Urine Turbid (Clear); Bacteria Urine 4+ /hpf; Bilirubin Urine Negative (Negative); Blood Urine Negative (Negative); Color Urine Dark Yellow (Yellow); Glucose Urine UA Negative (Negative); Ketones Urine Trace mg/dL (Negative); Leukocyte Esterase Ur 2+ LEU/UL (Negative); Need Manual Microscopic Reviewed; Nitrate Urine Negative (Negative); Protein Urine 1+ mg/dL (Negative); Specific Grav Ur 1.017 (1.001-1.035); Squamous Epithelial Cell Urine Moderate /hpf (Few); WBC Urine 51-100 /hpf (0-3)
[2023-09-26 10:10] LABS: Alanine Aminotransferase 16 U/L (6-35); Albumin Level 3.8 g/dL (3.5-5.1); Alkaline Phosphatase 79 U/L (38-126); Anion Gap 6 mmol/L (4-12); Aspartate Amino Transferase 16 U/L (14-36); Bilirubin,Total 0.6 mg/dL (0.2-1.3); Blood Urea Nitrogen 8 mg/dL (7-17); Calcium 9.7 mg/dL (8.4-10.2); Carbon Dioxide 25 mmol/L (22-30); Chloride 107 mmol/L (98-107); Estimated Glomerular Filt Rate > 60; Glucose 107 mg/dL (65-110); Potassium 3.1 mmol/L (3.4-5.0); Sodium 138 mmol/L (137-145); Uric Acid 4.9 mg/dL (2.5-7.5)
[2023-09-26 10:12] LABS: Creatinine Urine 191.1 mg/dL; Total Protein Urine Random 27 mg/dL; Ur Ttl Prot Creatinine Ratio 0.14 mg/mg (0-0.20)
--- NOTE | 2023-09-26 10:28 | PC.NURSE ---
Dr Mac informed of BP's and lab results. Orders to have patient increase Labetalol to 300mg BID and increase Procardia to 60mg every morning. Patient OK to take her own meds and reevaluate BP in an hour. Patient took addition dosing of medications. RN verified dosing.
[2023-09-26 10:31] LABS: Add Urine Microscopic? YES
--- NOTE | 2023-09-26 12:06 | PC.NURSE ---
Dr Mac notified of BP's after additional medications. orders received.
[2023-09-26] MEDS: hydrALAZINE HCL 20 MG/ML VIAL 5 MG IV PUSH (12:29)
[2023-09-26] MEDS: hydrALAZINE HCL 20 MG/ML VIAL 10 MG IV PUSH (13:05)
--- NOTE | 2023-09-26 13:05 | PC.NURSE ---
Dr Whalen at bedside to talk to patient.
--- NOTE | 2023-09-26 17:27 | PM.IMHP ---
H&P: HPI History of Present Illness Date/Time: 09/26/23 17:27 Chief Complaint: Elevated bp Narrative: 38 y/o at 34 weeks with gestational diabetes, history of preeclampsia, possible chronic hypertension. She was started on Procardia XL 30 mg and labetalol 200 mg po bid just in the last week. She had a headache yesterday and was asked to come to the office today for evaluation. She had bp 145/95 in the office and was sent to L&D for labs / observation. Here her bp ranged from 150-180/90-110. No headache currently. No abdominal pain. Good movement. She reports her fasting blood glucose is typically 105-110, but 1hour postprandial glucose values are normal at 120. Last ultrasound showed breech presentation with possible low-lying placenta. She was given Procardia XL 60 mg and labetalol 300 mg po this morning, then subsequently required hydralazine 5 mg IV, then 10 mg IV. Review of Systems Review of Systems: All systems reviewed & are unremarkable except as noted in HPI and below PMFSH Past Medical History Medical History PONV (postoperative nausea and vomiting) Family History Family History Other Patient denies significant medical history Social History Social History Smoking status: Never smoker Second hand tobacco smoke exposure: No Alcohol intake: current Drinks per week: 2 Substance use: never Substance use type: does not use Living arrangements: with family Gender identity (if verbalized by the patient): Female Spiritual care concerns: No Comments Past OB Hx: 1) SAB 2) 37 weeks with GDM, induced for preeclampsia 3) 36 weeks with GDM, induced for preeclampia Meds Home Medications and Allergies Home Medications Medication Instructions Recorded Confirmed Type ascorbic acid (vitamin C) 1,000 mg 1 g PO DAILY 07/25/21 01/10/23 History tablet cholecalciferol (vitamin D3) 125 125 mcg PO DAILY 07/25/21 01/10/23 History mcg (5,000 unit) tablet (Vitamin D3) vits 75-iron 28 mg-folic 1 pkg PO DAILY 07/25/21 01/10/23 History acid 800 mcg-omega-3 oral combo pack (One A Day Women's DHA) letrozole 2.5 mg tablet 7.5 mg PO DAILY 01/06/23 01/06/23 History hydrocodone 5 mg-acetaminophen 325 1 tablet PO Q4H PRN pain #10 tabs 01/10/23 Rx mg tablet Allergies Allergy/AdvReac Type Severity Reaction Status Date / Time No Known Allergies Allergy Verified 01/10/23 13:29 Vital Signs Vital Signs - 24 hr 09/26/23 09:30 09/26/23 09:45 09/26/23 10:00 Pulse Rate 76 76 74 Blood Pressure 153/94 H 149/90 H 140/95 H 09/26/23 10:15 09/26/23 11:26 09/26/23 11:30 Pulse Rate 75 67 68 Blood Pressure 152/97 H 151/90 H 151/98 H 09/26/23 11:45 09/26/23 12:00 09/26/23 12:23 Pulse Rate 72 73 78 Blood Pressure 165/93 H 162/103 H 167/99 H 09/26/23 12:30 09/26/23 12:35 09/26/23 12:40 Pulse Rate 72 74 71 Blood Pressure 159/97 H 164/97 H 155/93 H 09/26/23 12:45 09/26/23 12:50 09/26/23 13:00 Pulse Rate 75 77 87 Blood Pressure 159/95 H 156/93 H 162/97 H 09/26/23 13:05 09/26/23 13:10 09/26/23 13:15 Pulse Rate 88 95 96 Blood Pressure 168/91 H 180/102 H 177/100 H 09/26/23 13:20 09/26/23 13:25 09/26/23 13:30 Pulse Rate 81 84 89 Blood Pressure 158/90 H 159/91 H 166/95 H 09/26/23 13:40 09/26/23 13:45 09/26/23 13:50 Pulse Rate 84 83 85 Blood Pressure 163/95 H 161/88 H 156/92 H 09/26/23 13:55 09/26/23 14:00 09/26/23 14:05 Pulse Rate 85 83 84 Blood Pressure 145/91 H 147/90 H 154/90 H 09/26/23 14:10 09/26/23 14:15 09/26/23 14:25 Pulse Rate 82 78 80 Blood Pressure 147/92 H 152/88 H 149/93 H 09/26/23 14:30 09/26/23 14:35 09/26/23 14:40 Pulse Rate 83 79 76 Blood Pressure 146/92 H 155/88 H 148/89 H 09/26/23 15:00 09/26/23 16:00 0
--- NOTE | 2023-09-26 17:45 | PC.NURSE ---
Dr Whalen here to talk to patient, plan of care discussed to stay over night for BP management. Med orders received.
[2023-09-26] MEDS: NIFEdipine 30 MG TAB.ER.24 PO (18:56)
[2023-09-26 19:59] LABS: Glucose Point of Care 117 mg/dl (65-105)
[2023-09-26] MEDS: CALCIUM CARBONATE (TUMS) 500 MG (200 MG ELEMENTAL) PO (21:45)
[2023-09-26] MEDS: FAMOTIDINE 20 MG/2 ML VIAL IV PUSH (22:27)
[2023-09-26] MEDS: ZOLPIDEM TARTRATE (*CRX) 5 MG TABLET PO (22:28)
[2023-09-27 02:05] VITALS: BP 150/89; PULSE 79
[2023-09-27 05:24] VITALS: BP 136/82; PULSE 82
[2023-09-27 05:37] LABS: Basophils Percent Auto 0.4 % (0.2-1.2); Eosinophils Absolute Auto 0.1 K/mm3 (0-0.3); Eosinophils Percent Auto 0.6 % (0-4.4); Hematocrit 37.4 % (37.0-47.0); Hemoglobin 12.2 g/dL (12.0-15.0); Immature Granulocyte Absolute 0.06 K/mm3 (0.00-0.031); Immature Granulocyte Percent A 0.6 % (0-0.5); Lymphocytes Absolute Auto 1.79 K/mm3 (0.9-3.2); Mean Corpuscular HGB Conc 32.6 g/dl (32-36); Mean Corpuscular Hemoglobin 28.8 pg (26-34); Mean Corpuscular Volume 88.2 fl (80-100); Mean Platelet Volume 9.8 fl (7.4-10.4); Monocytes Absolute Auto 0.8 K/mm3 (0.1-0.6); Monocytes Percent Auto 7.9 % (2.6-8.5); Neutrophils Absolute Auto 7.8 K/mm3 (1.3-6.7); Neutrophils Percent Auto 73.5 % (45.5-73.1); Platelet Count Result 232 k/mm3 (150-375); Red Blood Count 4.24 M/mm3 (4.2-5.4); Red Cell Distribution Width 13.7 % (11.5-14.5); White Blood Count 10.5 K/mm3 (4.5-10.0)
[2023-09-27 05:57] LABS: Alanine Aminotransferase 15 U/L (6-35); Albumin Level 3.6 g/dL (3.5-5.1); Alkaline Phosphatase 80 U/L (38-126); Anion Gap 6 mmol/L (4-12); Aspartate Amino Transferase 17 U/L (14-36); Blood Urea Nitrogen 6 mg/dL (7-17); Calcium 8.4 mg/dL (8.4-10.2); Carbon Dioxide 24 mmol/L (22-30); Chloride 106 mmol/L (98-107); Estimated CRCL calculation 184 ml/min; Estimated Glomerular Filt Rate > 60; Glucose 90 mg/dL (65-110); Potassium 2.6 mmol/L (3.4-5.0); Sodium 136 mmol/L (137-145); Uric Acid 5.6 mg/dL (2.5-7.5)
[2023-09-27] MEDS: NIFEdipine 30 MG TAB.ER.24 60 MG PO (07:03)
--- NOTE | 2023-09-27 07:03 | P.PNOB_ITS ---
OB - PN: Subj Subjective Date/time seen: 09/27/23 07:03 No headache. No abdominal pain. Good movement. AVSS. BP much improved 130-150/80-90 NST reactive TOCO: rare contracations ABD soft, nontender, gravid EXT nontender A: IUP at 34 weeks with CHTN/gestational HTN, breech presentation, GDM P: Home on Procardia 60XL in am, 30XL in pm. F/u office early next week. OB - PN: Obj Data Labs 09/27/23 05:21 09/27/23 05:21 Labs: Laboratory Results - last 24 hr 09/26/23 09/26/23 09/27/23 09:29 19:49 05:21 WBC 11.2 H 10.5 H RBC 4.35 4.24 Hgb 12.6 12.2 Hct 38.1 37.4 MCV 87.6 88.2 MCH 29.0 28.8 MCHC 33.1 32.6 RDW 13.8 13.7 Plt Count 253 232 MPV 9.9 9.8 Immature Gran % (Auto) 0.7 H 0.6 H Neut % (Auto) 79.2 H 73.5 H Lymph % (Auto) 12.1 L 17.0 L [place] % (Auto) 7.4 7.9 Eos % (Auto) 0.4 0.6 Baso % (Auto) 0.2 0.4 Lymph # (Auto) 1.35 1.79 [place] # (Auto) 0.8 H 0.8 H Eos # (Auto) 0.0 0.1 Baso # (Auto) 0.0 0.0 Abs Immat Gran (auto) 0.08 H 0.06 H Absolute Neuts (auto) 8.9 H 7.8 H Absolute Nucleated RBC 0.000 0.000 Nucleated RBC % 0.0 0.0 Sodium 138 136 L Potassium 3.1 L 2.6 L* Chloride 107 106 Carbon Dioxide 25 24 Anion Gap 6 6 BUN 8 6 L Creatinine 0.60 L 0.40 L Estim Creat Clear Calc Not Reportable 184 Estimated GFR > 60 > 60 Glucose 107 90 POC Capillary Glucose 117 H Uric Acid 4.9 5.6 Calcium 9.7 8.4 Total Bilirubin 0.6 1.0 AST 16 17 ALT 16 15 Alkaline Phosphatase 79 80 Total Protein 7.0 6.0 L Albumin 3.8 3.6 Urine Color Dark yellow Urine Appearance Turbid H Urine pH 7.0 Ur Specific [place] 1.017 Urine Protein 1+ H Urine Glucose (UA) Negative Urine Ketones Trace H Ur Blood (Man) Negative Urine Nitrate Negative Urine Bilirubin Negative Urine Urobilinogen 1.0 Add Ur Microanalysis Reviewed Leukocyte Esterase Rfl 2+ H Urine RBC 3-5 H Urine WBC 51-100 H Ur Squamous Epith Cells Moderate Urine Bacteria 4+ H Urine Casts 11-20 U Random Total Protein 27 Urine Creatinine 191.1 Protein/Creat Ratio 2 0.14 Imaging Radiologist's impression: Impressions Obstetrical Follow-Up 09/26/23 14:53 IMPRESSION: 1. Single living fetus in breech presentation with heart rate of 130 bpm. 2. Biophysical profile 6 out of 8 with no points given for 30 contiguous seconds of breathing over the course of 30 minutes of observation. 3. Normal amniotic fluid volume of 10.4 cm. 4. Suboptimal visualization of the cervix on transabdominal imaging but which appears shortened to approximately 2.8 cm length with suggestion of V shaped funneling at the internal os.
[2023-09-27 07:04] VITALS: BP 134/89; PULSE 86
--- NOTE | 2023-09-27 07:06 | PM.DS ---
DS: Admitting Diagnosis Discharge Date 09/27/23 Admitting Diagnosis IUP at 34 weeks Chronic HTN vs. gestational HTN Gestational diabetes Breech presentation Hypokalemia DS: Discharge Diagnosis Discharge Diagnosis (1) Gestational diabetes mellitus (GDM) affecting fourth : Code(s): O24.419 - Gestational diabetes mellitus in , unspecified control Status: Acute (2) Gestational hypertension affecting fourth : Code(s): O13.9 - Gestational [-induced] hypertension without significant proteinuria, unspecified trimester Status: Acute (3) Hypertension affecting : Code(s): O16.9 - Unspecified maternal hypertension, unspecified trimester Status: Acute (4) Breech presentation: Code(s): O32.1XX0 - Maternal care for breech presentation, not applicable or unspecified Status: Acute (5) Hypokalemia: Code(s): E87.6 - Hypokalemia Status: Acute DS: Summary Hospital Course Hospital Course: Admitted for antihypertensive therapy and observation, able to go home on HD2. DS: Data Data Completed and Pending Labs on day of discharge: Labs from last 24 hours 09/27/23 09/26/23 09/26/23 05:21 19:49 09:29 WBC 10.5 H 11.2 H RBC 4.24 4.35 Hgb 12.2 12.6 Hct 37.4 38.1 MCV 88.2 87.6 MCH 28.8 29.0 MCHC 32.6 33.1 RDW 13.7 13.8 Plt Count 232 253 MPV 9.8 9.9 Immature Gran % (Auto) 0.6 H 0.7 H Neut % (Auto) 73.5 H 79.2 H Lymph % (Auto) 17.0 L 12.1 L [place] % (Auto) 7.9 7.4 Eos % (Auto) 0.6 0.4 Baso % (Auto) 0.4 0.2 Lymph # (Auto) 1.79 1.35 [place] # (Auto) 0.8 H 0.8 H Eos # (Auto) 0.1 0.0 Baso # (Auto) 0.0 0.0 Abs Immat Gran (auto) 0.06 H 0.08 H Absolute Neuts (auto) 7.8 H 8.9 H Absolute Nucleated RBC 0.000 0.000 Nucleated RBC % 0.0 0.0 Sodium 136 L 138 Potassium 2.6 L* 3.1 L Chloride 106 107 Carbon Dioxide 24 25 Anion Gap 6 6 BUN 6 L 8 Creatinine 0.40 L 0.60 L Estim Creat Clear Calc 184 Not Reportable Estimated GFR > 60 > 60 Glucose 90 107 POC Capillary Glucose 117 H Uric Acid 5.6 4.9 Calcium 8.4 9.7 Total Bilirubin 1.0 0.6 AST 17 16 ALT 15 16 Alkaline Phosphatase 80 79 Total Protein 6.0 L 7.0 Albumin 3.6 3.8 Urine Color Dark yellow Urine Appearance Turbid H Urine pH 7.0 Ur Specific [place] 1.017 Urine Protein 1+ H Urine Glucose (UA) Negative Urine Ketones Trace H Ur Blood (Man) Negative Urine Nitrate Negative Urine Bilirubin Negative Urine Urobilinogen 1.0 Add Ur Microanalysis Reviewed Leukocyte Esterase Rfl 2+ H Urine RBC 3-5 H Urine WBC 51-100 H Ur Squamous Epith Cells Moderate Urine Bacteria 4+ H Urine Casts 11-20 U Random Total Protein 27 Urine Creatinine 191.1 Protein/Creat Ratio 2 0.14 Discharge Plan Discharge Patient Disposition: Home, Self-Care Discharge Instructions: Call or return if temperature above 100.4? F, increased abdominal pain, severe headache, vaginal bleeding or any new problems. Follow-up/Referrals: Gómez Zabala MD [Physician] - Call for Appointment Discharge Medications: New nifedipine [Procardia XL] 30 mg tablet extended release 24hr 60 mg PO QAM Qty: 60 0RF nifedipine [Procardia XL] 30 mg tablet extended release 24hr 30 mg PO QPM Qty: 30 0RF potassium chloride 10 mEq capsule, extended release 10 meq PO BID Qty: 10 0RF Continued cholecalciferol (vitamin D3) [Vitamin D3] 125 mcg (5,000 unit) Tablet 125 mcg PO DAILY One A Day Women's DHA 28 mg iron- 800 mcg Combo Pack 1 pkg PO DAILY Discontinued ascorbic acid (vitamin C) 1,000 mg Tablet 1 g PO DAILY letrozole 2.5 mg tablet 7.5 mg PO DAILY hydrocodone-acetaminophen 5-325 mg tablet 1 tablet PO Q4H PRN (Reason: pain) Qty: 10 0RF
[2023-09-27 08:15] VITALS: BP 134/89; PULSE 82
== END 2023-09-27 08:26 | disposition home or self-care (01) ==
LOC: ANHOBOP 09:01 → ANHLDR 09:01 → ANHOBPP 09-27 06:13
PROVIDERS: Obstetrics & Gynecology; PCP Family Medicine; Visit Provider Obstetrics & Gynecology
DX: O32.1XX0 Maternal care for breech presentation, not applicable or unspecified (principal); E87.6 Hypokalemia; O16.9 Unspecified maternal hypertension, unspecified trimester; O24.419 Gestational diabetes mellitus in pregnancy, unspecified control; O13.9 Gestational [pregnancy-induced] hypertension without significant proteinuria, unspecified trimester
CPT/HCPCS: 36415; 59025; 76816; 76819; 80053; 81001; 82570; 82948; 84156; 84550; 85025; 87086; 87088; 99199; A9270; J0360

== ENCOUNTER 2023-10-03 08:18 | Outpatient (RCR) | payer OTHER, SELFPAY ==
[2023-10-03 08:51] VITALS: BP 137/92; PULSE 82
== END 2023-10-27 08:14 | disposition home or self-care (01) ==
LOC: ANHOBOP 08:18
PROVIDERS: PCP Family Medicine; Visit Provider Obstetrics & Gynecology
DX: O24.419 Gestational diabetes mellitus in pregnancy, unspecified control (principal); O16.3 Unspecified maternal hypertension, third trimester; Z3A.35 35 weeks gestation of pregnancy
CPT/HCPCS: 59025

== ENCOUNTER 2023-10-09 15:00 | Outpatient (CLI) | payer OTHER, SELFPAY ==
[2023-10-09] VITALS (12 sets, daily range): BP systolic 140–181; BP diastolic 92–107; PULSE 86–108; BMI 35.9
[2023-10-09 15:36] LABS: Basophils Absolute Auto 0.1 K/mm3 (0.0-0.1); Basophils Percent Auto 0.4 % (0.2-1.2); Eosinophils Absolute Auto 0.1 K/mm3 (0-0.3); Eosinophils Percent Auto 0.5 % (0-4.4); Hematocrit 40.8 % (37.0-47.0); Hemoglobin 13.8 g/dL (12.0-15.0); Immature Granulocyte Absolute 0.11 K/mm3 (0.00-0.031); Immature Granulocyte Percent A 0.9 % (0-0.5); Lymphocytes Percent Auto 15.5 % (18.3-44.2); Mean Corpuscular HGB Conc 33.8 g/dl (32-36); Mean Corpuscular Hemoglobin 28.8 pg (26-34); Mean Corpuscular Volume 85.2 fl (80-100); Mean Platelet Volume 9.8 fl (7.4-10.4); Monocytes Absolute Auto 0.9 K/mm3 (0.1-0.6); Monocytes Percent Auto 7.2 % (2.6-8.5); Neutrophils Absolute Auto 9.8 K/mm3 (1.3-6.7); Neutrophils Percent Auto 75.5 % (45.5-73.1); Platelet Count Result 247 k/mm3 (150-375); Red Blood Count 4.79 M/mm3 (4.2-5.4); Red Cell Distribution Width 13.2 % (11.5-14.5); White Blood Count 12.9 K/mm3 (4.5-10.0)
[2023-10-09 15:51] LABS: Alanine Aminotransferase 17 U/L (6-35); Alkaline Phosphatase 93 U/L (38-126); Anion Gap 7 mmol/L (4-12); Aspartate Amino Transferase 19 U/L (14-36); Bilirubin,Total 0.7 mg/dL (0.2-1.3); Blood Urea Nitrogen 14 mg/dL (7-17); Calcium 8.9 mg/dL (8.4-10.2); Carbon Dioxide 23 mmol/L (22-30); Chloride 107 mmol/L (98-107); Estimated Glomerular Filt Rate > 60; Glucose 86 mg/dL (65-110); Potassium 3.5 mmol/L (3.4-5.0); Sodium 137 mmol/L (137-145); Uric Acid 5.1 mg/dL (2.5-7.5)
[2023-10-09 15:57] LABS: Creatinine Urine 40.9 mg/dL; Total Protein Urine Random 114 mg/dL; Ur Ttl Prot Creatinine Ratio 2.79 mg/mg (0-0.20)
[2023-10-09] MEDS: LABETALOL HCL 100 MG TABLET 200 MG PO (15:57)
[2023-10-09 16:15] LABS: Appearance Urine Clear (Clear); Bacteria Urine 1+ /hpf; Bilirubin Urine Negative (Negative); Blood Urine Trace (Negative); Color Urine Yellow (Yellow); Glucose Urine UA Negative (Negative); Ketones Urine Negative (Negative); Leukocyte Esterase Ur Trace LEU/UL (Negative); Need Manual Microscopic Reviewed; Nitrate Urine Negative (Negative); Non Pathogenic Casts 0-2; Protein Urine 2+ mg/dL (Negative); Specific Grav Ur 1.011 (1.001-1.035); Squamous Epithelial Cell Urine None Seen /hpf (Few); Urobilinogen Urine 0.2 mg/dL (<2.0)
[2023-10-09 16:17] LABS: Add Urine Microscopic? YES
--- NOTE | 2023-10-09 16:50 | P.PNOB_ITS ---
OB - Triage/Final Diagnosis Visit Information Date of evaluation: 10/09/23 Reason for evaluation: other ( Gestational hypertension) Comments/Additional reasons for admission: I have assessed the risk for this patient, Svitlana Alaniz, and determined that she would benefit from observation care. Evaluation Laboratory results: Laboratory Tests 10/09/23 15:20 WBC 12.9 H RBC 4.79 Hgb 13.8 Hct 40.8 MCV 85.2 MCH 28.8 MCHC 33.8 RDW 13.2 Plt Count 247 MPV 9.8 Immature Gran % (Auto) 0.9 H Neut % (Auto) 75.5 H Lymph % (Auto) 15.5 L [place] % (Auto) 7.2 Eos % (Auto) 0.5 Baso % (Auto) 0.4 Lymph # (Auto) 2.00 [place] # (Auto) 0.9 H Eos # (Auto) 0.1 Baso # (Auto) 0.1 Abs Immat Gran (auto) 0.11 H Absolute Neuts (auto) 9.8 H Absolute Nucleated RBC 0.000 Nucleated RBC % 0.0 Sodium 137 Potassium 3.5 Chloride 107 Carbon Dioxide 23 Anion Gap 7 BUN 14 D Creatinine 0.60 L Estim Creat Clear Calc Not Reportable Estimated GFR > 60 Glucose 86 Uric Acid 5.1 Calcium 8.9 Total Bilirubin 0.7 AST 19 ALT 17 Alkaline Phosphatase 93 Total Protein 7.0 Albumin 4.0 Urine Color Yellow Urine Appearance Clear Urine pH 7.0 Ur Specific [place] 1.011 Urine Protein 2+ H Urine Glucose (UA) Negative Urine Ketones Negative Ur Blood (Man) Trace Urine Nitrate Negative Urine Bilirubin Negative Urine Urobilinogen 0.2 Add Ur Microanalysis Reviewed Leukocyte Esterase Rfl Trace H Urine RBC 3-5 H Urine WBC 6-10 H Ur Squamous Epith Cells None seen Urine Bacteria 1+ H Urine Casts 0-2 U Random Total Protein 114 Urine Creatinine 40.9 Protein/Creat Ratio 2 2.79 H Vital signs: Vital Signs - 24 hr 10/09/23 15:24 10/09/23 15:45 10/09/23 16:00 Pulse Rate 108 H 96 93 Blood Pressure 181/107 H 164/107 H 155/99 H 10/09/23 16:15 10/09/23 16:30 10/09/23 16:45 Pulse Rate 92 86 90 Blood Pressure 150/99 H 144/99 H 158/97 H 05/30/24 15:57 Pulse Rate 87 Blood Pressure
== END 2023-10-09 17:45 | disposition home or self-care (01) ==
LOC: ANHOBOP 15:03 → ANHOBPP 15:04
PROVIDERS: PCP Family Medicine; Visit Provider Obstetrics & Gynecology
DX: O13.9 Gestational [pregnancy-induced] hypertension without significant proteinuria, unspecified trimester (principal); Z3A.00 Weeks of gestation of pregnancy not specified
CPT/HCPCS: 36415; 59025; 80053; 81001; 82570; 84156; 84550; 85025; 87086; 99199; A9270

== ENCOUNTER 2023-10-10 21:40 | Observation (INO) | payer OTHER, SELFPAY ==
[2023-10-10] VITALS (21 sets, daily range): BP systolic 155–159; BP diastolic 100–109; PULSE 80–92; O2SAT 94–99
[2023-10-10 22:57] LABS: Basophils Absolute Auto 0.1 K/mm3 (0.0-0.1); Basophils Percent Auto 0.4 % (0.2-1.2); Eosinophils Absolute Auto 0.1 K/mm3 (0-0.3); Eosinophils Percent Auto 0.5 % (0-4.4); Hematocrit 36.5 % (37.0-47.0); Hemoglobin 12.5 g/dL (12.0-15.0); Immature Granulocyte Absolute 0.09 K/mm3 (0.00-0.031); Immature Granulocyte Percent A 0.8 % (0-0.5); Lymphocytes Absolute Auto 1.94 K/mm3 (0.9-3.2); Lymphocytes Percent Auto 16.5 % (18.3-44.2); Mean Corpuscular HGB Conc 34.2 g/dl (32-36); Mean Corpuscular Hemoglobin 29.1 pg (26-34); Mean Corpuscular Volume 85.1 fl (80-100); Mean Platelet Volume 10.1 fl (7.4-10.4); Monocytes Absolute Auto 1.1 K/mm3 (0.1-0.6); Monocytes Percent Auto 9.4 % (2.6-8.5); Neutrophils Absolute Auto 8.5 K/mm3 (1.3-6.7); Neutrophils Percent Auto 72.4 % (45.5-73.1); Platelet Count Result 240 k/mm3 (150-375); Red Blood Count 4.29 M/mm3 (4.2-5.4); Red Cell Distribution Width 13.2 % (11.5-14.5); White Blood Count 11.8 K/mm3 (4.5-10.0)
[2023-10-10 23:06] LABS: Appearance Urine Clear (Clear); Bacteria Urine None Seen /hpf; Bilirubin Urine Negative (Negative); Blood Urine Negative (Negative); Color Urine Yellow (Yellow); Creatinine Urine 10.9 mg/dL; Glucose Urine UA Negative (Negative); Ketones Urine Negative (Negative); Leukocyte Esterase Ur Negative LEU/UL (Negative); Nitrate Urine Negative (Negative); Non Pathogenic Casts 0-2; Protein Urine 2+ mg/dL (Negative); RBC Urine 0-2 /hpf (0-2); Specific Grav Ur 1.005 (1.001-1.035); Squamous Epithelial Cell Urine None Seen /hpf (Few); Total Protein Urine Random 107 mg/dL; Ur Ttl Prot Creatinine Ratio 9.82 mg/mg (0-0.20); Urobilinogen Urine 0.2 mg/dL (<2.0); WBC Urine 0-5 /hpf (0-3)
[2023-10-10 23:09] LABS: Alanine Aminotransferase 17 U/L (6-35); Albumin Level 3.6 g/dL (3.5-5.1); Alkaline Phosphatase 86 U/L (38-126); Anion Gap 3 mmol/L (4-12); Aspartate Amino Transferase 20 U/L (14-36); Bilirubin,Total 0.6 mg/dL (0.2-1.3); Blood Urea Nitrogen 14 mg/dL (7-17); Calcium 9.2 mg/dL (8.4-10.2); Carbon Dioxide 23 mmol/L (22-30); Chloride 109 mmol/L (98-107); Estimated Glomerular Filt Rate > 60; Glucose 96 mg/dL (65-110); Potassium 3.4 mmol/L (3.4-5.0); Sodium 135 mmol/L (137-145)
[2023-10-10 23:14] LABS: Add Urine Microscopic? YES
[2023-10-10] MEDS: ZOLPIDEM TARTRATE (*CRX) 5 MG TABLET PO (23:55)
[2023-10-10] MEDS: LABETALOL HCL 100 MG TABLET PO (23:55)
[2023-10-11] VITALS (125 sets, daily range): BP systolic 127–158; BP diastolic 82–109; PULSE 74–97; RESP 16–18; TEMP 36.2–37.2; O2SAT 93–99; BMI 35.9
[2023-10-11] MEDS: NIFEdipine 30 MG TAB.ER.24 60 MG PO (06:00)
[2023-10-11 08:35] LABS: Glucose Point of Care 90 mg/dl (65-105)
[2023-10-11] MEDS: LABETALOL HCL 100 MG TABLET 200 MG PO (09:03)
--- NOTE | 2023-10-11 10:56 | PM.IMHP ---
H&P: HPI History of Present Illness Date/Time: 10/11/23 10:56 Chief Complaint: High blood pressure Narrative: 38 y/o at 36 1/7 weeks with CHTN, A1DM. She had a bp 180/100 at home and was asked to come in. Good movement. Blood glc has been stable at home, diet controlled. She has been taking Procardia XL 60 mg bid and labetalol 200 mg po bid. Baby was transverse recently. Low lying placenta has apparently resolved as of her last ultrasound exam. No headache or visual field change, no abdominal pain, good movement. Review of Systems Review of Systems: All systems reviewed & are unremarkable except as noted in HPI and below PMFSH Past Medical History Medical History Chronic hypertension affecting Gestational diabetes mellitus (GDM) affecting fourth PONV (postoperative nausea and vomiting) Surgical History Surgical History History of D&C Family History Family History Other Patient denies significant medical history Social History Social History Smoking status: Never smoker Second hand tobacco smoke exposure: No Alcohol intake: current Drinks per week: 2 Substance use: never Substance use type: does not use Living arrangements: with family Gender identity (if verbalized by the patient): Female Spiritual care concerns: No Meds Home Medications and Allergies Home Medications Medication Instructions Recorded Confirmed Type cholecalciferol (vitamin D3) 125 125 mcg PO DAILY 07/25/21 10/11/23 History mcg (5,000 unit) tablet (Vitamin D3) vits 75-iron 28 mg-folic 1 pkg PO DAILY 07/25/21 10/11/23 History acid 800 mcg-omega-3 oral combo pack (One A Day Women's DHA) nifedipine 30 mg tablet,extended 30 mg PO QPM #30 tabs 09/27/23 Rx release 24 hr (Procardia XL) nifedipine 30 mg tablet,extended 60 mg PO QAM #60 tabs 09/27/23 10/11/23 Rx release 24 hr (Procardia XL) potassium chloride 10 mEq 10 meq PO BID #10 caps 09/27/23 Rx capsule,extended release labetalol 200 mg tablet 200 mg PO Q12H 10/11/23 10/11/23 History Allergies Allergy/AdvReac Type Severity Reaction Status Date / Time No Known Allergies Allergy Verified 10/11/23 03:18 Vital Signs Vital Signs - 24 hr 10/10/23 22:14 10/10/23 22:19 10/10/23 22:24 Temperature Pulse Rate Respiratory Rate Blood Pressure Blood Pressure [Right Arm] Pulse Oximetry 98 98 99 Oxygen Delivery 10/10/23 22:29 10/10/23 22:34 10/10/23 22:39 Temperature Pulse Rate Respiratory Rate Blood Pressure Blood Pressure [Right Arm] Pulse Oximetry 97 98 99 Oxygen Delivery 10/10/23 22:40 10/10/23 22:44 10/10/23 22:49 Temperature Pulse Rate 85 Respiratory Rate Blood Pressure 158/109 H Blood Pressure [Right Arm] Pulse Oximetry 98 99 Oxygen Delivery 10/10/23 22:50 10/10/23 22:55 10/10/23 23:00 Temperature Pulse Rate 82 Respiratory Rate Blood Pressure 159/107 H Blood Pressure [Right Arm] Pulse Oximetry 97 97 97 Oxygen Delivery 10/10/23 23:05 10/10/23 23:10 10/10/23 23:15 Temperature Pulse Rate 83 Respiratory Rate Blood Pressure 155/101 H Blood Pressure [Right Arm] Pulse Oximetry 96 96 98 Oxygen Delivery 10/10/23 23:20 10/10/23 23:25 10/10/23 23:30 Temperature Pulse Rate 82 Respiratory Rate Blood Pressure 159/100 H Blood Pressure [Right Arm] Pulse Oximetry 96 94 98 Oxygen Delivery 10/10/23 23:52 10/10/23 23:57 10/11/23 00:00 Temperature Pulse Rate 82 Respiratory Rate Blood Pressure 137/90 Blood Pressure [Right Arm] Pulse Oximetry 98 98 Oxygen Delivery 10/11/23 00:02 10/11/23 00:07 06
[2023-10-11 11:07] LABS: Glucose Point of Care 97 mg/dl (65-105)
--- NOTE | 2023-10-11 11:12 | PC.NURSE ---
Dr. Whalen at bedside, orders received to discharge patient with 24 hour urine. Patient in agreement with plan of care.
--- NOTE | 2023-10-28 12:21 | PM.OBTRLD ---
OB - Triage/Final Diagnosis Visit Information Comments/Additional reasons for admission: I have assessed the risk for this patient, Svitlana Alaniz, and determined that she would benefit from observation care. Evaluation Laboratory results: Laboratory Tests 10/10/23 10/11/23 10/11/23 22:22 08:27 10:59 WBC 11.8 H RBC 4.29 Hgb 12.5 Hct 36.5 L MCV 85.1 MCH 29.1 MCHC 34.2 RDW 13.2 Plt Count 240 MPV 10.1 Immature Gran % (Auto) 0.8 H Neut % (Auto) 72.4 Lymph % (Auto) 16.5 L [place] % (Auto) 9.4 H Eos % (Auto) 0.5 Baso % (Auto) 0.4 Lymph # (Auto) 1.94 [place] # (Auto) 1.1 H Eos # (Auto) 0.1 Baso # (Auto) 0.1 Abs Immat Gran (auto) 0.09 H Absolute Neuts (auto) 8.5 H Absolute Nucleated RBC 0.000 Nucleated RBC % 0.0 Sodium 135 L Potassium 3.4 Chloride 109 H Carbon Dioxide 23 Anion Gap 3 L BUN 14 Creatinine 0.50 L Estim Creat Clear Calc Not Reportable Estimated GFR > 60 Glucose 96 POC Capillary Glucose 90 97 Uric Acid 5.0 Calcium 9.2 Total Bilirubin 0.6 AST 20 ALT 17 Alkaline Phosphatase 86 Total Protein 6.0 L Albumin 3.6 Urine Color Yellow Urine Appearance Clear Urine pH 7.0 Ur Specific [place] 1.005 Urine Protein 2+ H Urine Glucose (UA) Negative Urine Ketones Negative Ur Blood (Man) Negative Urine Nitrate Negative Urine Bilirubin Negative Urine Urobilinogen 0.2 Leukocyte Esterase Rfl Negative Urine RBC 0-2 Urine WBC 0-5 Ur Squamous Epith Cells None seen Urine Bacteria None seen Urine Casts 0-2 U Random Total Protein 107 Urine Creatinine 10.9 Protein/Creat Ratio 2 9.82 H Final Diagnosis (1) Chronic hypertension affecting : Code(s): O10.919 - Unspecified pre-existing hypertension complicating , unspecified trimester Status: Acute
== END 2023-10-11 12:25 | disposition home or self-care (01) ==
LOC: ANHOBOP 21:47 → ANHOBPP 10-11 11:07 → ANHOBOP 10-13 09:26 → ANHOBPP 10-13 09:26 → ANHOBOP 10-13 09:27 → ANHOBPP 10-13 09:28
PROVIDERS: Obstetrics & Gynecology; Admitting Provider Obstetrics & Gynecology Gynecology; PCP Family Medicine; Visit Provider Obstetrics & Gynecology
DX: O10.913 Unspecified pre-existing hypertension complicating pregnancy, third trimester (principal); O24.419 Gestational diabetes mellitus in pregnancy, unspecified control; Z3A.36 36 weeks gestation of pregnancy
CPT/HCPCS: 36415; 80053; 81001; 81050; 82570; 82575; 82948; 84156; 84550; 85025; 99199; A9270; G0378; G0379

== ENCOUNTER 2023-10-12 06:41 | Outpatient (CLI) | payer OTHER, SELFPAY ==
[2023-10-12 07:05] VITALS: BMI 35.9
[2023-10-12 07:44] LABS: Collection Time Urine 24 HOURS
[2023-10-12 07:47] LABS: Total Volume 24 Hour Urine 2200 ml
[2023-10-12 07:53] LABS: Creatinine Clearance Urine 150.2 ml/min (75-125); Creatinine Urine 59.2 mg/dL; Patient Weight 222 Lbs; Total Protein Urine Random 38 mg/dL
[2023-10-12 07:58] LABS: Total Protein Urine 24 Hr 836 mg/24hr (28-141)
== END 2023-10-12 06:42 | disposition home or self-care (01) ==
LOC: ANHOBOP 06:46
PROVIDERS: PCP Family Medicine; Visit Provider Obstetrics & Gynecology
DX: O12.10 Gestational proteinuria, unspecified trimester (principal)
CPT/HCPCS: 81050; 82575; 84156

== ENCOUNTER 2023-10-13 10:59 | Outpatient (RCR) | payer OTHER, SELFPAY ==
[2023-10-12] MEDS: BETAMETHASONE SOD PHOS/ACETATE 30 MG/5 ML VIAL 12 MG IM (15:02)
[2023-10-13] MEDS: BETAMETHASONE SOD PHOS/ACETATE 30 MG/5 ML VIAL 12 MG IM (16:29)
== END 2023-10-13 11:00 | disposition home or self-care (01) ==
LOC: ANHOBOP 10:59
PROVIDERS: PCP Family Medicine; Visit Provider Obstetrics & Gynecology
DX: O36.8990 Maternal care for other specified fetal problems, unspecified trimester, not applicable or unspecified (principal); Z3A.00 Weeks of gestation of pregnancy not specified
CPT/HCPCS: 96372; J0702

== ENCOUNTER 2023-10-15 06:28 | Inpatient (IN) | payer OTHER, SELFPAY ==
[2023-10-15] VITALS (137 sets, daily range): BP systolic 119–186; BP diastolic 78–134; PULSE 70–156; RESP 13–18; TEMP 36.2–37.2; O2SAT 93–100; BMI 35.6
[2023-10-15 07:06] LABS: Basophils Absolute Auto 0.1 K/mm3 (0.0-0.1); Basophils Percent Auto 0.4 % (0.2-1.2); Eosinophils Percent Auto 0.3 % (0-4.4); Hematocrit 40.3 % (37.0-47.0); Hemoglobin 13.2 g/dL (12.0-15.0); Immature Granulocyte Absolute 0.43 K/mm3 (0.00-0.031); Immature Granulocyte Percent A 2.8 % (0-0.5); Lymphocytes Absolute Auto 2.14 K/mm3 (0.9-3.2); Lymphocytes Percent Auto 14.2 % (18.3-44.2); Mean Corpuscular HGB Conc 32.8 g/dl (32-36); Mean Corpuscular Hemoglobin 28.6 pg (26-34); Mean Corpuscular Volume 87.4 fl (80-100); Monocytes Absolute Auto 1.3 K/mm3 (0.1-0.6); Monocytes Percent Auto 8.7 % (2.6-8.5); Neutrophils Absolute Auto 11.1 K/mm3 (1.3-6.7); Neutrophils Percent Auto 73.6 % (45.5-73.1); Nucleated Red Blood Cells Perc 0.2 % (0.0-0.2); Platelet Count Result 262 k/mm3 (150-375); Red Blood Count 4.61 M/mm3 (4.2-5.4); Red Cell Distribution Width 13.2 % (11.5-14.5); White Blood Count 15.1 K/mm3 (4.5-10.0)
[2023-10-15] MEDS: LACTATED RINGERS 1,000 ML 125 ML IV CONT ×3 (07:10→11:48)
--- NOTE | 2023-10-15 07:20 | LDADM ---
This patient, Svitlana Alaniz, was admitted to Labor/Delivery/Recovery 103 on 10/15/23 at 06:28. Plans for labor, pain management and were discussed with patient. Patient/family oriented to hospital policies and general routines including ID bracelet, bed and alarms, visiting hours, pain management, procedures, bathroom and other care routines, personal items, smoking policy, room service/diet and guest tray routines, security routines, and visiting hours. Patient/Family are encouraged to report perceived risks to care and to ask questions if they do not understand what they are told or what they should do. See [facility] for further documentation.
[2023-10-15 07:21] LABS: Alanine Aminotransferase 31 U/L (6-35); Albumin Level 4.1 g/dL (3.5-5.1); Alkaline Phosphatase 91 U/L (38-126); Anion Gap 8 mmol/L (4-12); Aspartate Amino Transferase 26 U/L (14-36); Bilirubin,Total 0.6 mg/dL (0.2-1.3); Blood Urea Nitrogen 16 mg/dL (7-17); Calcium 8.7 mg/dL (8.4-10.2); Carbon Dioxide 20 mmol/L (22-30); Chloride 107 mmol/L (98-107); Estimated Glomerular Filt Rate > 60; Glucose 87 mg/dL (65-110); Potassium 3.6 mmol/L (3.4-5.0); Sodium 135 mmol/L (137-145); Uric Acid 5.4 mg/dL (2.5-7.5)
[2023-10-15 08:00] LABS: HIV 1/2 Ab P24 Ag Result Negative (Negative)
--- NOTE | 2023-10-15 08:20 | WPDANESEPP ---
Anes - Eval Pre Procedure Procedure: Operation Date: 10/15/23 12:00 labor epidural Date/Time: 10/15/23 08:20 Surgeon: renate Preop Diagnosis: pain during labor, version Pre Op Diagnosis: iol Patient Data Age: 38 Gender: F Height: 1.68 m Weight: 100 kg Last Vital Signs Pulse 73 10/15/23 08:15 BP 158/105 H 10/15/23 08:15 O2 Del Method Room Air 10/15/23 07:17 Allergies Allergy/AdvReac Type Severity Reaction Status Date / Time No Known Allergies Allergy Verified 10/11/23 03:18 Home Medications Medication Instructions Recorded Confirmed Type vits 75-iron 28 mg-folic 1 pkg PO DAILY 07/25/21 10/14/23 History acid 800 mcg-omega-3 oral combo pack (One A Day Women's DHA) labetalol 200 mg tablet 200 mg PO TID #30 tabs 10/11/23 10/14/23 Rx nifedipine 60 mg tablet,extended 60 mg PO BID #30 tabs 10/11/23 10/14/23 Rx release 24 hr (Procardia XL) aspirin 81 mg capsule 81 mg PO DAILY 10/14/23 10/14/23 History Laboratory Tests 10/15/23 06:47 WBC 15.1 H K/mm3 (4.5-10.0) RBC 4.61 M/mm3 (4.2-5.4) Hgb 13.2 g/dL (12.0-15.0) Hct 40.3 % (37.0-47.0) MCV 87.4 fl (80-100) MCH 28.6 pg (26-34) MCHC 32.8 g/dl (32-36) RDW 13.2 % (11.5-14.5) Plt Count 262 k/mm3 (150-375) MPV 10.0 fl (7.4-10.4) Immature Gran % (Auto) 2.8 H % (0-0.5) Neut % (Auto) 73.6 H % (45.5-73.1) Lymph % (Auto) 14.2 L % (18.3-44.2) [place] % (Auto) 8.7 H % (2.6-8.5) Eos % (Auto) 0.3 % (0-4.4) Baso % (Auto) 0.4 % (0.2-1.2) Lymph # (Auto) 2.14 K/mm3 (0.9-3.2) [place] # (Auto) 1.3 H K/mm3 (0.1-0.6) Eos # (Auto) 0.0 K/mm3 (0-0.3) Baso # (Auto) 0.1 K/mm3 (0.0-0.1) Abs Immat Gran (auto) 0.43 H K/mm3 (0.00-0.031) Absolute Neuts (auto) 11.1 H K/mm3 (1.3-6.7) Absolute Nucleated RBC 0.030 H K/mm3 (0.0-0.012) Nucleated RBC % 0.2 % (0.0-0.2) Sodium 135 L mmol/L (137-145) Potassium 3.6 mmol/L (3.4-5.0) Chloride 107 mmol/L (98-107) Carbon Dioxide 20 L mmol/L (22-30) Anion Gap 8 mmol/L (4-12) BUN 16 mg/dL (7-17) Creatinine 0.60 L mg/dL (0.7-1.0) Estim Creat Clear Calc Not Reportable Estimated GFR > 60 (59 - ) Glucose 87 mg/dL (65-110) Uric Acid 5.4 mg/dL (2.5-7.5) Calcium 8.7 mg/dL (8.4-10.2) Total Bilirubin 0.6 mg/dL (0.2-1.3) AST 26 U/L (14-36) ALT 31 U/L (6-35) Alkaline Phosphatase 91 U/L (38-126) Total Protein 7.0 g/dL (6.3-8.2) Albumin 4.1 g/dL (3.5-5.1) RPR Pending HIV 1&2 Ab/P24 Ag 4thGn Negative (Negative) Patient hx anesthesia problems: none Family hx anesthesia problems: none Results Review: All pre-operative results and documents have been reviewed as part of the pre-operative evaluation. [facility] Past Medical History Medical History Chronic hypertension affecting Gestational diabetes mellitus (GDM) affecting fourth PONV (postoperative nausea and vomiting) Surgical History Surgical History History of D&C Family History Family History Other Patient denies significant medical history Social History Social History Smoking status: Never smoker Second hand tobacco smoke exposure: No Alcohol intake: current Drinks per week: 2 Substance use: never Substance use type: does not use Do You Feel Safe in your Home?: Yes Lack of Transportation: No Lack of Food: Never True Current Housing: I Have Housing Concerned About Future Housing: No Difficulty Paying Gas/Electric Bills: No Difficulty Paying for Meds: No Currently Unemployed: No Education: Master's Degree or Higher Di
[2023-10-15] MEDS: LABETALOL HCL INJ 100 MG/20 ML VIAL 20 MG IV PUSH (09:12)
[2023-10-15 09:23] LABS: Glucose Point of Care 73 mg/dl (65-105)
[2023-10-15] MEDS: LABETALOL HCL INJ 100 MG/20 ML VIAL 40 MG IV PUSH (09:31)
[2023-10-15] MEDS: OXYTOCIN 30 UNITS/NS 500 ML 30 UNITS/500 ML BAG IV CONT (09:38)
[2023-10-15 11:03] LABS: Glucose Point of Care 86 mg/dl (65-105)
--- NOTE | 2023-10-15 12:47 | PM.IMHP ---
H&P: HPI History of Present Illness Date/Time: 10/15/23844 Chief Complaint: Here to have a baby Narrative: 38 y/o G4 2011 at 36 5/7 weeks with CHTN, now with superimposed preeclampsia based on 24 hour urine. BP has been increasing and more difficult to control with PO meds. No headaches or visual field change. Transverse lie on last ultrasound. Had steroid course. A1DM well controlled. Review of Systems Review of Systems: All systems reviewed & are unremarkable except as noted in HPI and below PMFSH Past Medical History Medical History Chronic hypertension affecting Gestational diabetes mellitus (GDM) affecting fourth PONV (postoperative nausea and vomiting) Surgical History Surgical History History of D&C Family History Family History Other Patient denies significant medical history Social History Social History Smoking status: Never smoker Second hand tobacco smoke exposure: No Alcohol intake: current Drinks per week: 2 Substance use: never Substance use type: does not use Do You Feel Safe in your Home?: Yes Lack of Transportation: No Lack of Food: Never True Current Housing: I Have Housing Concerned About Future Housing: No Difficulty Paying Gas/Electric Bills: No Difficulty Paying for Meds: No Currently Unemployed: No Education: Master's Degree or Higher Difficulty w/ Childcare or Family Care: No Living arrangements: with family Gender identity (if verbalized by the patient): Female Spiritual care concerns: No Meds Home Medications and Allergies Home Medications Medication Instructions Recorded Confirmed Type vits 75-iron 28 mg-folic 1 pkg PO DAILY 07/25/21 10/14/23 History acid 800 mcg-omega-3 oral combo pack (One A Day Women's DHA) labetalol 200 mg tablet 200 mg PO TID #30 tabs 10/11/23 10/14/23 Rx nifedipine 60 mg tablet,extended 60 mg PO BID #30 tabs 10/11/23 10/14/23 Rx release 24 hr (Procardia XL) aspirin 81 mg capsule 81 mg PO DAILY 10/14/23 10/14/23 History Allergies Allergy/AdvReac Type Severity Reaction Status Date / Time No Known Allergies Allergy Verified 10/11/23 03:18 Vital Signs Vital Signs - 24 hr 10/15/23 07:01 10/15/23 07:15 10/15/23 07:30 Temperature Pulse Rate 80 79 76 Blood Pressure 168/115 H 160/109 H 166/107 H Pulse Oximetry Oxygen Delivery 10/15/23 07:45 10/15/23 08:00 10/15/23 08:15 Temperature Pulse Rate 78 73 73 Blood Pressure 169/110 H 168/104 H 158/105 H Pulse Oximetry Oxygen Delivery 10/15/23 08:20 10/15/23 08:21 10/15/23 08:22 Temperature Pulse Rate 89 81 Blood Pressure 163/106 H 161/105 H Pulse Oximetry 96 Oxygen Delivery 10/15/23 08:23 10/15/23 08:24 10/15/23 08:26 Temperature Pulse Rate 89 Blood Pressure 157/134 H Pulse Oximetry 98 100 Oxygen Delivery 10/15/23 08:28 10/15/23 08:29 10/15/23 08:31 Temperature Pulse Rate 104 H 95 83 Blood Pressure 186/119 H 171/103 H 168/100 H Pulse Oximetry 97 Oxygen Delivery 10/15/23 08:34 10/15/23 08:36 10/15/23 08:37 Temperature Pulse Rate 73 78 77 Blood Pressure 169/101 H 169/105 H 159/103 H Pulse Oximetry 97 Oxygen Delivery 10/15/23 08:39 10/15/23 08:41 10/15/23 08:42 Temperature Pulse Rate 80 79 Blood Pressure 154/105 H 154/103 H Pulse Oximetry 95 Oxygen Delivery 10/15/23 08:45 10/15/23 08:46 10/15/23 08:48 Temperature Pulse Rate 73 75 Blood Pressure 166/104 H 156/101 H Pulse Oximetry 96 Oxygen Delivery 10/15/23 08:51 10/15/23 08:54 10/15/23 08:56 Temperature Pulse Rate 77 80 Blood Pressure 162/104 H 159/106 H Pulse Oximetry 95 96 Oxygen D
[2023-10-15] MEDS: ACETAMINOPHEN 500 MG TABLET 1000 MG PO (12:53)
--- NOTE | 2023-10-15 12:54 | PM.OBPNLAB ---
Pain Control Date/time seen: 10/15/23 12:54 Comments: BP had improved with labetalol IV. Recent bp 160/100 Comfortable with epidural. Pelvic Exam Dilation (cm): 3 Effacement (%): 50 station: -2 Comments: Grossly bloody amniotic fluid noted at the time of exam. Contractions Contraction frequency: 3 Contraction pattern: Regular Status Comments: 135 with good variability, no decelerations. Assessment and Plan Pitocin rate (mU/min): 6 Comments: A: IUP at 36 5/7 weeks, clinically suspicious now for placental abruption. P: Recommended delivery at once. She understands risks of surgery to include risks of anesthesia, risks of pain, infection, bleeding, blood products, thromboembolic phenomena and damage to adjacent structures such as bowel, bladder, ureters, blood vessels and nerves. She understands all these risks and elects to proceed with surgery.
[2023-10-15] MEDS: ONDANSETRON INJ 4 MG/2 ML VIAL IV PUSH (12:55)
[2023-10-15] MEDS: FAMOTIDINE 20 MG/2 ML VIAL IV PUSH (12:58)
--- NOTE | 2023-10-15 13:00 | P.PNAN_ITS ---
Anes - Eval Final PreProcedure Day of Procedure 10/15/23 13:00 Patient weight: obese Heart: regular rate and rhythm Lungs: clear to auscultation Airway: Mallampati scale class III Neurological: alert and oriented Last oral intake: >/= 8 hours ASA classification: III Emergent: no Anesthetic plan: proceed Anesthesia type and monitoring: regional epidural and standard monitoring Results Review: All pre-operative results and documents have been reviewed as part of the pre- operative evaluation. Informed Consent: The patient's anesthetic plan and its attendant risks and benefits were discussed with the patient/family/POA. Questions were solicited and answers provided to the satisfaction of the patient/family/POA.
[2023-10-15] MEDS: ceFAZolin 2 GM/D5W 50 ML 2 GM/50 ML BAG IVPB (13:04)
--- NOTE | 2023-10-15 14:16 | W.PM.OBCSD ---
OB - Delivery Note Procedure Delivery date: 10/15/23 Pre-op diagnosis: Chronic Hypertension (with superimposed preeclampsia), Gestational Diabetes and Placental Abruption Post-op Diagnosis: Same Induction method: Per Pitocin Protocol Delivery augmentation: Rupture of Membranes Delivery monitor: External FHT, External Uterine and Internal Uterine Procedure Performed: Primary Surgeon: Rufino Whalen MD Anesthesia type: Epidural Description of Procedure/Findings: Findings: bloody amniotic fluid; placenta consistent with abruption. Uterus with subtle heart shape. Otherwise, unremarkable uterus, tubes and ovaries. Techniques: The patient was taken to the operating room where she was prepared and draped in the usual sterile fashion in dorsal supine position with a leftward tilt. She received cefazolin preoperatively. Spinal anesthesia was found to be adequate. A Pfannenstiel skin incision was made and carried through to the underlying layer of the fascia. The fascia was incised in the midline and the incision was extended laterally. The fascia was dissected free of the underlying rectus muscles. The rectus muscles were in the midline. The peritoneum was identified, tented up and entered sharply. The peritoneal incision was extended superiorly and inferiorly with good visualization of the bladder. The bladder blade was placed. The vesicouterine peritoneum was identified, tented up and entered sharply. The incision was extended laterally and the bladder flap was developed. The bladder blade was replaced. The uterus was then incised sharply in a transverse fashion along the lower uterine segment. The incision was extended laterally. The 's head was delivered atraumatically to the sterile field, followed by the body. The nose and mouth were bulb suctioned. After a delay, the cord was clamped and cut. The infant was handed off the field. Cord blood was collected. The placenta was removed manually and was passed off the field. The uterus was exteriorized and cleared of all clots and debris. The uterine incision was reapproximated using 0 Monocryl in a running, locked fashion. A second, imbricating layer of the same suture was run. Excellent hemostasis resulted as did excellent reapproximation of the normal anatomy. The uterus was returned the abdomen. The pelvis was irrigated copiously with warmed normal saline. Hemaderm was applied to the bladder flap. Rigorous hemostasis was assured. The fascial layer was reapproximated using 0 Vicryl in a running fashion. The skin was closed with a running, subcuticular stitch of 4 0 Vicryl. Dermaflex was applied externally. Sponge, lap, needle and instrument counts were correct. The patient was taken to the recovery room in stable condition. The infant went to the nursery in stable condition. I was present and scrubbed the entire procedure. Specimen: Yes (cord blood, placenta) Estimated Blood Loss: 1,080 Drains: Yes (billings) Packing: No Pathology: Yes (Placenta) Complications: None Condition: Stable Disposition: PACU [place] [facility] Date of : 10/15/23 Time of : 13:21 Weeks of gestation at delivery: 36 gender: Female Weight (pounds): 6 Weight (ounces): 9 presentation: vertex Placenta delivery description: Manual Removal Cord Vessel Description: 3 Vessels, Nuchal Cord and Delayed Cord Clamping score one minute: 6 score five minutes: 8
--- NOTE | 2023-10-15 14:26 | PC.NURSE ---
heart tones obtained in OR after moving patient to operating table. FHT 125 at 1308. Proceeded to prep patient as usual.
[2023-10-15] MEDS: fentaNYL CITRATE INJ (*CRX) 100 MCG/2 ML VIAL 25 MCG IV PUSH ×4 (14:41→15:39)
[2023-10-15] MEDS: OXYTOCIN 30 UNITS/NS 500 ML 30 UNITS/500 ML BAG 125 UNITS IV CONT (15:49)
[2023-10-15 16:23] LABS: Rapid Plasma Reagin Non-Reactive (NonReactive)
--- NOTE | 2023-10-15 16:40 | OBPPTRN ---
Patient transferred to post room #281 via stretcher. Oriented to unit, room, information board, rooming in, admission packet and security measures. Patient verbalizes understanding.
[2023-10-15] MEDS: SIMETHICONE 80 MG TAB.CHEW PO (17:00)
[2023-10-15] MEDS: DOCUSATE SODIUM 100 MG CAPSULE PO (17:00)
[2023-10-15] MEDS: LIDOCAINE 5% PATCH 1 PATCH TRANSDERM (17:00)
[2023-10-15] MEDS: KETOROLAC 15 MG/ML VIAL (*BKC) IV PUSH ×2 (17:00→22:45)
--- NOTE | 2023-10-15 17:51 | PC.NURSE ---
This RN offered patient a pump, patient explained she would like to use her own. Encouraged skin to skin and nipple stimulation to protect milk supply. Patient verified understanding.
[2023-10-15] MEDS: HYDROcodone/acetaminophen (*CRX) 10-325 MG TABLET 1 TAB PO (18:03)
[2023-10-15] MEDS: ACETAMINOPHEN 325 MG TABLET 650 MG PO (19:19)
[2023-10-15] MEDS: LABETALOL HCL 100 MG TABLET 200 MG PO (19:20)
[2023-10-15] MEDS: DEXTROSE 5%/0.45% SOD CHL 1,000 ML 125 ML IV CONT (19:51)
[2023-10-16] VITALS (7 sets, daily range): BP systolic 131–155; BP diastolic 82–99; PULSE 70–95; RESP 16; TEMP 36.6–37.2; O2SAT 95–98
[2023-10-16] MEDS: HYDROcodone/acetaminophen (*CRX) 10-325 MG TABLET 1 TAB PO ×5 (01:46→20:29)
[2023-10-16] MEDS: ACETAMINOPHEN 325 MG TABLET 650 MG PO ×2 (01:47→09:14)
[2023-10-16 04:39] LABS: Basophils Percent Auto 0.3 % (0.2-1.2); Eosinophils Percent Auto 0.1 % (0-4.4); Hematocrit 29.3 % (37.0-47.0); Hemoglobin 9.5 g/dL (12.0-15.0); Immature Granulocyte Absolute 0.12 K/mm3 (0.00-0.031); Immature Granulocyte Percent A 0.8 % (0-0.5); Lymphocytes Absolute Auto 1.61 K/mm3 (0.9-3.2); Lymphocytes Percent Auto 10.2 % (18.3-44.2); Mean Corpuscular HGB Conc 32.4 g/dl (32-36); Mean Corpuscular Volume 89.3 fl (80-100); Mean Platelet Volume 10.4 fl (7.4-10.4); Monocytes Absolute Auto 1.1 K/mm3 (0.1-0.6); Monocytes Percent Auto 6.8 % (2.6-8.5); Neutrophils Percent Auto 81.8 % (45.5-73.1); Platelet Count Result 223 k/mm3 (150-375); Red Blood Count 3.28 M/mm3 (4.2-5.4); Red Cell Distribution Width 13.1 % (11.5-14.5); White Blood Count 15.8 K/mm3 (4.5-10.0)
[2023-10-16] MEDS: KETOROLAC 15 MG/ML VIAL (*BKC) IV PUSH ×2 (04:59→12:46)
--- NOTE | 2023-10-16 05:19 | PM.OBPNVD ---
OB - PN: Subj Subjective Date/time seen: 10/16/23 05:19 Narrative: Pain OK. Tolerating diet. OB - PN: Obj Data Labs 10/16/23 03:41 10/15/23 06:47 Labs: Laboratory Results - last 24 hr 10/15/23 10/15/23 10/15/23 06:47 09:21 10:59 WBC 15.1 H RBC 4.61 Hgb 13.2 Hct 40.3 MCV 87.4 MCH 28.6 MCHC 32.8 RDW 13.2 Plt Count 262 MPV 10.0 Immature Gran % (Auto) 2.8 H Neut % (Auto) 73.6 H Lymph % (Auto) 14.2 L [place] % (Auto) 8.7 H Eos % (Auto) 0.3 Baso % (Auto) 0.4 Lymph # (Auto) 2.14 [place] # (Auto) 1.3 H Eos # (Auto) 0.0 Baso # (Auto) 0.1 Abs Immat Gran (auto) 0.43 H Absolute Neuts (auto) 11.1 H Absolute Nucleated RBC 0.030 H Nucleated RBC % 0.2 Sodium 135 L Potassium 3.6 Chloride 107 Carbon Dioxide 20 L Anion Gap 8 BUN 16 Creatinine 0.60 L Estim Creat Clear Calc Not Reportable Estimated GFR > 60 Glucose 87 POC Capillary Glucose 73 86 Uric Acid 5.4 Calcium 8.7 Total Bilirubin 0.6 AST 26 ALT 31 Alkaline Phosphatase 91 Total Protein 7.0 Albumin 4.1 RPR Non-reactive HIV 1&2 Ab/P24 Ag 4thGn Negative Blood Type A Positive Antibody Screen Negative 10/16/23 03:41 WBC 15.8 H RBC 3.28 L Hgb 9.5 L D Hct 29.3 L MCV 89.3 MCH 29.0 MCHC 32.4 RDW 13.1 Plt Count 223 MPV 10.4 Immature Gran % (Auto) 0.8 H Neut % (Auto) 81.8 H Lymph % (Auto) 10.2 L [place] % (Auto) 6.8 Eos % (Auto) 0.1 Baso % (Auto) 0.3 Lymph # (Auto) 1.61 [place] # (Auto) 1.1 H Eos # (Auto) 0.0 Baso # (Auto) 0.0 Abs Immat Gran (auto) 0.12 H Absolute Neuts (auto) 13.0 H Absolute Nucleated RBC 0.000 Nucleated RBC % 0.0 Sodium Potassium Chloride Carbon Dioxide Anion Gap BUN Creatinine Estim Creat Clear Calc Estimated GFR Glucose POC Capillary Glucose Uric Acid Calcium Total Bilirubin AST ALT Alkaline Phosphatase Total Protein Albumin RPR HIV 1&2 Ab/P24 Ag 4thGn Blood Type Antibody Screen OB - PN A/P Plan day: 1 Comments: A: POD#1, doing well. P: Routine care. Exam Narrative: AVSS I/O OK ABD soft, nontender, fundus firm. Incision c/d/i. EXT nontender
--- NOTE | 2023-10-16 05:19 | PM.OBDSVD ---
DS: Admitting Diagnosis Discharge Date 10/18/23 Admitting Diagnosis IUP at 36 5/7 weeks Chronic hypertension with superimposed preeclampsia A2DM DS: Discharge Diagnosis Discharge Diagnosis (1) Pre-eclampsia added to pre-existing hypertension: Code(s): O11.9 - Pre-existing hypertension with pre-eclampsia, unspecified trimester Status: Acute (2) Gestational diabetes mellitus (GDM) affecting fourth : Code(s): O24.419 - Gestational diabetes mellitus in , unspecified control Status: Acute (3) delivery delivered: Code(s): O82 - Encounter for delivery without indication Status: Acute (4) Placenta abruption, delivered, current hospitalization: Code(s): O45.90 - Premature separation of placenta, unspecified, unspecified trimester Status: Acute OB - DS: Summary OB Procedures : NST, PIH Mgmt and Ultrasound OB Procedures Intrapartum: OB Procedures: : None Peripartum Data Procedures: Procedures Operation Date: 10/15/23 12:00 <No data on this case meets the specified criteria> Operation Date: 10/15/23 13:00 Actual Procedure Side Surgeon p Section Not Applicable Rufino Whalen MD Time Spent with Patient Time attestation: Total time spent providing and/or coordinating discharge services: DS: Data Data Completed and Pending Pending studies at discharge: Pending at discharge 10/15/23 14:42 Surgical [PTH] Routine Labs on day of discharge: Labs from last 24 hours 10/16/23 10/15/23 10/15/23 03:41 10:59 09:21 WBC 15.8 H RBC 3.28 L Hgb 9.5 L D Hct 29.3 L MCV 89.3 MCH 29.0 MCHC 32.4 RDW 13.1 Plt Count 223 MPV 10.4 Immature Gran % (Auto) 0.8 H Neut % (Auto) 81.8 H Lymph % (Auto) 10.2 L [place] % (Auto) 6.8 Eos % (Auto) 0.1 Baso % (Auto) 0.3 Lymph # (Auto) 1.61 [place] # (Auto) 1.1 H Eos # (Auto) 0.0 Baso # (Auto) 0.0 Abs Immat Gran (auto) 0.12 H Absolute Neuts (auto) 13.0 H Absolute Nucleated RBC 0.000 Nucleated RBC % 0.0 Sodium Potassium Chloride Carbon Dioxide Anion Gap BUN Creatinine Estim Creat Clear Calc Estimated GFR Glucose POC Capillary Glucose 86 73 Uric Acid Calcium Total Bilirubin AST ALT Alkaline Phosphatase Total Protein Albumin RPR HIV 1&2 Ab/P24 Ag 4thGn Blood Type Antibody Screen 10/15/23 06:47 WBC 15.1 H RBC 4.61 Hgb 13.2 Hct 40.3 MCV 87.4 MCH 28.6 MCHC 32.8 RDW 13.2 Plt Count 262 MPV 10.0 Immature Gran % (Auto) 2.8 H Neut % (Auto) 73.6 H Lymph % (Auto) 14.2 L [place] % (Auto) 8.7 H Eos % (Auto) 0.3 Baso % (Auto) 0.4 Lymph # (Auto) 2.14 [place] # (Auto) 1.3 H Eos # (Auto) 0.0 Baso # (Auto) 0.1 Abs Immat Gran (auto) 0.43 H Absolute Neuts (auto) 11.1 H Absolute Nucleated RBC 0.030 H Nucleated RBC % 0.2 Sodium 135 L Potassium 3.6 Chloride 107 Carbon Dioxide 20 L Anion Gap 8 BUN 16 Creatinine 0.60 L Estim Creat Clear Calc Not Reportable Estimated GFR > 60 Glucose 87 POC Capillary Glucose Uric Acid 5.4 Calcium 8.7 Total Bilirubin 0.6 AST 26 ALT 31 Alkaline Phosphatase 91 Total Protein 7.0 Albumin 4.1 RPR Non-reactive HIV 1&2 Ab/P24 Ag 4thGn Negative Blood Type A Positive Antibody Screen Negative Discharge Plan Discharge Attending physician on discharge: Rufino Whalen Discharging Clinician: Rufino Whalen Patient Disposition: Home, Self-Care Activity: may shower and may drive after 2 weeks Diet: regular Wound Care Instructions: incision open to air Discharge Instructions: Call or return if temperature above 100.4? F, increased abdominal pain, increased vaginal bleeding or any new problems. Stand Alone Forms: General Discharge Information Follow-up/Referrals: Gómez Zabala MD [Physician] - 4 Weeks Disch
--- NOTE | 2023-10-16 05:29 | PC.NURSE ---
Aldana catheter out at 0350.
--- NOTE | 2023-10-16 07:36 | WPDANLDPN2 ---
Anes-Prog Note L&D Date/Time: 10/16/23 07:36 Comfortable throughout: labor and section Neuraxial method: epidural Epidural/Spinal procedure site: clean & non-tender Neuro status: Neuro function grossly intact. Cardiovascular status: normal Respiratory status: normal Airway patency: baseline Mental status: baseline Post-Op hydration status: normal Vital Signs: Last Vital Signs Temp 37.0 C 10/16/23 04:00 Pulse 81 10/16/23 04:00 Resp 16 10/16/23 04:00 BP 150/93 H 10/16/23 04:00 Pulse Ox 96 10/16/23 04:00 O2 Del Method Room Air 10/15/23 19:31 Pain score (VAS): 3/10 I/O: Intake & Output 10/15/23 10/15/23 10/16/23 15:59 23:59 07:59 Intake Total 1999 700 1999 Output Total 1079 1250 1525 Balance 920 -172 343 Post-procedural complaints: pruritis mild, no treatment Patient feedback: Patient satisfied with anesthetic care.
--- NOTE | 2023-10-16 07:51 | WPDANLDNPN2 ---
Anes-Prog Note L&D-Neuraxial Date/Time: 10/16/23 07:51 Neuraxial medications: epidural PF morphine Opiod-related complaints: pruritis mild, no treatment Patient feedback: Patient satisfied with post-operative pain management.
[2023-10-16] MEDS: MULTIVIT/MIN/PREN/FOL AC/IRON TABLET 1 TAB PO (09:13)
[2023-10-16] MEDS: DOCUSATE SODIUM 100 MG CAPSULE PO ×2 (09:13→17:08)
[2023-10-16] MEDS: SIMETHICONE 80 MG TAB.CHEW PO ×3 (09:13→17:08)
[2023-10-16] MEDS: POLYSACCHARIDE IRON COMPLEX 150 MG CAPSULE PO ×2 (09:13→17:08)
[2023-10-16] MEDS: LABETALOL HCL 100 MG TABLET 200 MG PO ×2 (09:14→20:27)
--- NOTE | 2023-10-16 14:22 | PC.NURSE ---
[id number] Introductions were made, then consulted with patient to assess needs related to . Discussed with mother her?plans to feed?her infant, the?experience so far and pumping without pain. Discussed with mother the possible delay of the milk surge coming to volume and how to protect and how to encourage a robust milk supply. 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 Resources provided for inpatient with RN LC name written on the communication board and how to use the call light to request assistance with any questions or concerns. Mother voiced understanding of information and will call if there is a request for assistance.
[2023-10-16] MEDS: IBUPROFEN 600 MG TABLET PO (20:28)
[2023-10-17] VITALS (8 sets, daily range): BP systolic 124–157; BP diastolic 76–100; PULSE 79–95; RESP 16–20; TEMP 36.3–37.2; O2SAT 96–100
[2023-10-17] MEDS: HYDROcodone/acetaminophen (*CRX) 5-325 MG TABLET 1 TAB PO ×2 (00:08→07:00)
[2023-10-17] MEDS: ACETAMINOPHEN 325 MG TABLET 650 MG PO ×3 (04:45→17:07)
[2023-10-17] MEDS: LIDOCAINE 5% PATCH 1 PATCH TRANSDERM (04:45)
[2023-10-17] MEDS: IBUPROFEN 600 MG TABLET PO ×3 (04:45→17:07)
[2023-10-17] MEDS: LABETALOL HCL 100 MG TABLET 200 MG PO ×2 (06:59→19:55)
[2023-10-17] MEDS: DOCUSATE SODIUM 100 MG CAPSULE PO ×2 (07:01→17:06)
[2023-10-17] MEDS: POLYSACCHARIDE IRON COMPLEX 150 MG CAPSULE PO ×2 (07:01→17:06)
[2023-10-17] MEDS: SIMETHICONE 80 MG TAB.CHEW PO ×5 (07:01→19:58)
[2023-10-17] MEDS: MULTIVIT/MIN/PREN/FOL AC/IRON TABLET 1 TAB PO (07:01)
[2023-10-18 01:10] VITALS: BP 154/96; PULSE 90; O2SAT 97
[2023-10-18] MEDS: ACETAMINOPHEN 325 MG TABLET 650 MG PO ×2 (01:58→09:10)
[2023-10-18] MEDS: IBUPROFEN 600 MG TABLET PO ×2 (01:58→09:10)
[2023-10-18 08:00] VITALS: BP 160/100; PULSE 92; RESP 16; TEMP 37.1; O2SAT 97
[2023-10-18 09:10] VITALS: PULSE 92
[2023-10-18] MEDS: SIMETHICONE 80 MG TAB.CHEW PO (09:10)
[2023-10-18] MEDS: LABETALOL HCL 100 MG TABLET 200 MG PO (09:10)
[2023-10-18] MEDS: POLYSACCHARIDE IRON COMPLEX 150 MG CAPSULE PO (09:11)
[2023-10-18] MEDS: MULTIVIT/MIN/PREN/FOL AC/IRON TABLET 1 TAB PO (09:11)
[2023-10-18] MEDS: DOCUSATE SODIUM 100 MG CAPSULE PO (09:11)
--- NOTE | 2023-10-18 10:15 | PM.OBPNVD ---
OB - PN: Subj Subjective Date/time seen: 10/18/23 10:15 Narrative: Pain OK. Tolerating diet. Would like to go home. OB - PN: Obj Data Labs 10/16/23 03:41 10/15/23 06:47 OB - PN A/P Plan day: 3 Comments: A: POD#3, doing well. P: Add Procardia XL 30 mg daily. Home to f/u bp in the next week. Exam Narrative: AVSS ABD soft, nontender, fundus firm. Incision c/d/i. EXT nontender
[2023-10-18 11:08] VITALS: BP 148/97
[2023-10-18] MEDS: MEASLES,MUMPS,RUBELLA VACCINE 0.5 ML VIAL SUB-Q (12:14)
[2023-10-20 09:21] VITALS: BP 152/100; PULSE 83; RESP 18; TEMP 36.8; O2SAT 100
== END 2023-10-18 13:18 | disposition home or self-care (01) | DRG 788 ==
LOC: ANHLDR 12:37 → ANHOB2 10-16 05:22 → ANHLDR 10-20 12:37 → ANHOB2 10-20 12:37
PROVIDERS: Obstetrics & Gynecology; Admitting Provider Obstetrics & Gynecology; PCP Family Medicine; Visit Provider Obstetrics & Gynecology
PROC: 10D00Z1 Extraction of Products of Conception, Low, Open Approach (ICD-10-PCS; CPT 59514; principal; 2023-10-15 13:00)
DX: O11.4 Pre-existing hypertension with pre-eclampsia, complicating childbirth (principal); O24.429 Gestational diabetes mellitus in childbirth, unspecified control; O45.93 Premature separation of placenta, unspecified, third trimester; Z37.0 Single live birth; Z3A.36 36 weeks gestation of pregnancy
CPT/HCPCS: 36415; 80053; 82948; 84550; 85025; 86592; 86703; 86850; 86900; 86901; 88307; 90710; A9270; G0432; J0690; J1200; J1885; J2274; J2405; J2590; J2795; J3010; J7120